=== PATIENT | male | born 1950 | race Caucasian/White ===

== ENCOUNTER 2017-04-23 11:39 | Emergency (ER) | payer OTHER ==
[2017-04-23 11:49] VITALS: BP 144/69
== END 2017-04-23 12:29 | disposition left against medical advice (07) ==
LOC: ED 11:39
DX: R22.42 Localized swelling, mass and lump, left lower limb (principal); Z53.21 Procedure and treatment not carried out due to patient leaving prior to being seen by health care provider

== ENCOUNTER 2017-04-24 06:27 | Emergency (ER) | payer OTHER ==
[2017-04-24] MEDS ORDERED: ceFAZolin 1 GM in Dextrose (*) 1 GM/50 ML BAG IVPB ONE (08:06)
[2017-04-24 08:35] LABS: ABS Basophils 0.1 10^3/ul (0-0.2); ABS Eosinophils 0.1 10^3/ul (0-0.6); ABS Monocytes 1.2 10^3/ul (0-0.8); ABS Neutrophils 10.9 10^3/ul (1.5-7.7); ABS Nucleated RBC 0 10^3/ul; Eosinophil % 0.6 % (0-6); Hematocrit 42 % (42-52); Hemoglobin 14.5 g/dl (14.0-18.0); Lymphocyte % 7.9 % (25-47); Mean Corpuscular HGB Conc 34 g/dl (31-36); Mean Corpuscular Hemoglobin 34 pg (27-31); Mean Corpuscular Volume 100 fL (80-94); Mean Platelet Volume 7 um3 (7.4-10.4); Nucleated Red Blood Cells % 0; Platelet Count 270 10^3/ul (150-450); Red Blood Count 4.21 10^6/ul (4.0-5.4); Red Cell Distribution Width 13 % (10.5-15); White Blood Count 13.3 10^3/ul (3.5-10.8)
[2017-04-24 08:44] LABS: EGFR Non-African American 73.7 (>60)
[2017-04-24] MEDS ORDERED: oxyCODONE/Acetamin 5/325 MG* TAB PO ONE (08:57)
[2017-04-24 09:32] VITALS: BP 141/73
--- NOTE | 2017-04-25 08:29 | ED ---
Amado Perez Angela, scribed for Ricky Logan MD on 04/24/17 at 0751 . Lower Extremity - HPI Summary HPI Summary: This pt is a 67 y/o male presenting to [facility] c/o left leg pain and swelling x2 weeks. Pt reports that he injects himself testosterone twice a month due to low levels of testosterone per his PCP. He notes that the last time he injected himself was 2 weeks ago on left thigh and reports it felt different. Pt states that it was more painful and it felt like the needle "hit something" inside his leg. Denies fever, chills, chest pain, SOB. - History of Current Complaint Chief Complaint: EDExtremityLower Stated Complaint: LEFT LEG INJURY Time Seen by Provider: 04/24/17 07:37 Hx Obtained From: Patient Mechanism Of Injury: Other - s/p injecting testosterone Onset of Pain: Immediate Onset/Duration: Still Present Severity Currently: Severe Pain Intensity: 10 Pain Scale Used: 0-10 Numeric Timing: Constant, Lasting Weeks Location: Is Discrete @ - left lower extremity Associated Signs And Symptoms: Positive: Swelling, Redness Aggravating Factor(s): Nothing Alleviating Factor(s): Nothing Able to Bear Weight: Yes - Allergies/Home Medications Allergies/Adverse Reactions: Allergies Allergy/AdvReac Type Severity Reaction Status Date / Time No Known Allergies Allergy Verified 04/24/17 06:33 PMH/Surg Hx/FS Hx/Imm Hx Endocrine/Hematology History: Denies: Hx Diabetes Cardiovascular History: Reports: Hx Hypertension - norvasc used by pt Denies: Hx Pacemaker/ICD Respiratory History: Denies: Hx Asthma History: Denies: Hx Dialysis, Hx Renal Disease Musculoskeletal History: Reports: Hx Arthritis, Hx Back Problems - CHONIC LOWER BACK PAIN/SCIATICA, Hx Gout Sensory History: Reports: Hx Contacts or Glasses - CONTACTS Denies: Hx Hearing Aid Opthamlomology History: Reports: Hx Contacts or Glasses - CONTACTS Psychiatric History: Reports: Hx Anxiety - MILD CLAUSTROPHOBIA Denies: Hx Panic Disorder - Surgical History Surgery Procedure, Year, and Place: bilateral hip replacements RIGHT 2006, LEFT 1997. hernia repairs, cryptorchid repair, cyst removed from rt elbow,. rt knee athroscopy 1997. BL TESTECTLAR SURGERY CHILD. RIGHT FEMORAL NECK SX/ EXCISION NECROTIC BONE BY DR PEREZ AROUND 1989 Infectious Disease History: No Infectious Disease History: Denies: Traveled Outside the [place] in Last 30 Days - Family History Known Family History: Positive: Respiratory Disease - Father: COPD Family History: Mother: gastric CA - Social History Alcohol Use: Weekly Hx Substance Use: No Substance Use Type: Reports: None Hx Tobacco Use: No Smoking Status (MU): Former Smoker Review of Systems Negative: Fever, Chills ENT: Negative Negative: Chest Pain Negative: Shortness Of Breath Gastrointestinal: Negative Musculoskeletal: Other - left thigh swelling, left thigh pain All Other Systems Reviewed And Are Negative: Yes Physical Exam - Summary Physical Exam Summary: VITAL SIGNS: Reviewed. GENERAL: Patient is a well-developed and nourished male who is lying comfortable in the stretcher. Patient is not in any acute respiratory distress. HEAD AND FACE: No signs of trauma. No ecchymosis, hematomas or skull depressions. No sinus tenderness. EYES: PERRLA, EOMI x 2, No injected conjunctiva, no nystagmus. EARS: Hearing grossly intact. Ear canals and tympanic membranes are within normal limits. MOUTH: Oropharynx within normal limits. NECK: Supple, trachea is midline, no adenopathy, no JVD, no carotid bruit, no c- spine tenderness, neck with full ROM. CHEST: Symmetric, no tenderness at palpation LUNGS: Clear to auscultation bilaterally. No wheezing or crackles. CVS: Regular rate and rhythm, S1 and S2 present, no murmurs or gallops appreciated. ABDOMEN: Soft, non-tender. No signs of distention. No rebound no guarding, and no masses palpated. Bowel sounds are normal. EXTREMITIES: FROM in all major joints, no cyanosis or clubbing. LLE: left thigh swelling with increased warmth and erythema at the site where he injected testosterone. NEURO: Alert and oriented x 3. No acute neurological deficits. Speech is normal and follows commands. SKIN: Dry and warm Triage Information Reviewed: Yes Vital Signs On Initial Exam: Initial Vitals Temp Pulse Resp BP Pulse Ox 98.1 F 95 20 142/72 96 04/24/17 06:31 04/24/17 06:31 04/24/17 06:31 04/24/17 06:31 04/24/17 06:31 Vital Signs Reviewed: Yes Procedures - Incision and Drainage Site: Left thigh Anesthesia: Lidocaine Instrument(s): Scalpel LK FREEMAN - Vital Signs Vital Signs Temp Pulse Resp BP Pulse Ox 04/24/17 06:31 98.1 F 95 20 142/72 96 - Laboratory Result Diagrams: 04/24/17 08:15 04/24/17 08:15 Lab Statement: Any lab studies that have been ordered have been reviewed, and results considered in the medical decision making process. Re-Evaluation - Re-Evaluation First Eval Re-Evaluation Time: 08:45 Comment: I and D was performed on left leg. Lower Extremity Course/Dx - Course Assessment/Plan: This pt is a 67 y/o male presenting to [facility] c/o left leg pain and swelling x2 weeks. Pt reports that he injects himself testosterone twice a month due to low levels of testosterone per his PCP. He notes that the last time he injected himself was 2 weeks ago and it felt different. Pt states that it was more painful and it felt like the needle "hit something" inside his leg. Denies fever, chills, chest pain, SOB. Test results show WBC of 13.3, CRP of 169.98. An incision and drainage was performed on abscess on left thigh. A wound culture was sent, currently pending. In the ED course the pt was given Cefazolin and Percocet for the pain. Pt was discharged to home and was placed on Bactrim. He is instructed to return to the ED for any worsening or new symptoms. Pt is hemodynamically stable, alert and oriented x3. - Diagnoses Provider Diagnoses: Cellulitis, Abscess, Status post incision and drainage Discharge - Discharge Plan Condition: Stable Disposition: HOME Prescriptions: Sulfamethox/Trimethoprim DS* [Bactrim DS 800/160 TAB*] 1 tab PO BID #20 tab Patient Education Materials: Cellulitis (ED), Abscess (ED), Incision and Drainage (ED) Referrals: Danita Blackmon MD [Primary Care Provider] - 3 Days Additional Instructions: Please follow up with your primary care provider. RETURN TO THE ED FOR ANY WORSENING SYMPTOMS. The documentation as recorded by the Amado benson Angela accurately reflects the service I personally performed and the decisions made by , Ricky Logan MD.
--- NOTE | 2017-04-25 21:47 | ED ---
Progress - Progress Note Progress Note: Patient's wound culture is negative for MRSA however positive for staph aureus. Patient's wound was incised and drained at time of visit and he was started on Bactrim which is appropriate antibiotic for this type of bacteria. No further action at this time. Re-Evaluation - Re-Evaluation First Eval Re-Evaluation Time: 08:45 Comment: I and D was performed on left leg. Course/Dx - Diagnoses Provider Diagnoses: Cellulitis, Abscess, Status post incision and drainage
== END 2017-04-24 09:15 | disposition home or self-care (01) ==
LOC: ED 06:27
DX: L02.416 Cutaneous abscess of left lower limb (principal); L03.90 Cellulitis, unspecified
CPT/HCPCS: 10060; 36415; 80053; 85025; 86140; 87070; 87077; 87186; 87205; 87640; 87641; 96360; 99282; A9270-GY; J0690

== ENCOUNTER 2017-04-30 14:42 | Inpatient (IN) | payer OTHER ==
[2017-04-30] MEDS ORDERED: Acetaminophen TAB* 325 MG PO PRN (15:18)
[2017-04-30] MEDS ORDERED: HYDROcodone/ACETAMIN 5-325 MG* 1 TAB PO PRN (15:18)
[2017-04-30] MEDS ORDERED: ceFAZolin 2 GM PREMIX (*) 2 GM/50 ML BAG IVPB SCH (16:00)
[2017-04-30 17:19] LABS: Hematocrit 44 % (42-52); Hemoglobin 15.1 g/dl (14.0-18.0); Mean Corpuscular HGB Conc 35 g/dl (31-36); Mean Corpuscular Hemoglobin 35 pg (27-31); Mean Corpuscular Volume 101 fL (80-94); Mean Platelet Volume 7 um3 (7.4-10.4); Platelet Count 420 10^3/ul (150-450); Red Blood Count 4.34 10^6/ul (4.0-5.4); Red Cell Distribution Width 13 % (10.5-15)
[2017-04-30] MEDS: ceFAZolin 2 GM/20 ML SYRINGE IVPB Q8H IVPB SCH ×4 (17:34→23:43)
[2017-04-30] MEDS: NS 0.9% 1000 ML* 1,000 ML IV SCH (17:34)
[2017-04-30 17:51] LABS: EGFR Non-African American 71.2 (>60)
[2017-04-30] MEDS: Morphine INJ* 2 MG/ML 1 ML CARPUJECT IV PRN (19:46)
[2017-04-30] MEDS: Atorvastatin* 10 MG TAB PO SCH (20:00)
[2017-04-30] MEDS: HYDROcodone/ACETAMIN 5-325 MG* 1 TAB PO PRN (22:32)
--- NOTE | 2017-04-30 22:49 | CONS ---
CC: [facility]; Dr. Perez, [facility] * CONSULTATION REPORT: DATE OF CONSULT: 04/30/17 REFERRING PROVIDER: Lizzie Manning DO, Hospitalist. REASON FOR CONSULTATION: Left thigh abscess. HISTORY OF PRESENT ILLNESS: Mr. Luther Flannery is a 67-year-old gentleman who injects testosterone into his thighs every several weeks. He did this last about 2 weeks ago and subsequently developed some redness, swelling, and inflammation in the left lateral anterior thigh area. He has been seen in the emergency room several times and also by Dr. Perez and had a rather large abscess drained on Sunday. This wound has been packed. He is still having copious amounts of turbid bloody fluid and, although he says he feels somewhat better and he has had no fevers, he sought care today and was admitted to the hospitalist service to start IV antibiotics, wound care, and obtain surgical consultation. He has had no fever, shakes, or chills. He is still having quite a large amount of drainage from the thigh. PAST MEDICAL HISTORY: 1. Rheumatoid arthritis. 2. Hypertension. 3. Obesity. 4. Gout. PAST SURGICAL HISTORY: Bilateral hip replacements and knee replacement. ALLERGIES: He has no known drug allergies. SOCIAL HISTORY: He is retired. He works as a reading teacher and he is and lives in [facility]. PHYSICAL EXAM: Temperature 98.4, pulse 61, blood pressure 144/59. In the left superior lateral thigh, he has a transverse incision of about 1 inch. There is some induration, but no significant redness surrounding the area. There is a one-quarter inch ribbon packing extruding from the area with a fair amount of bloody turbid drainage on the overlying gauze. The area is indurated and tender , but there is no redness or fluctuance noted. I note no swelling in the left lower extremity. DIAGNOSTIC STUDIES: He underwent an ultrasound last week prior to Dr. Perez ' incision and drainage in the office, which showed fluid. IMPRESSION: Left thigh abscess. This has been what appears to be adequately drained by Dr. Perez last Sunday, but he is having persistent discomfort as well as drainage. He was admitted to the hospitalist service for IV antibiotics. On review of his exam, he is still having drainage. I suspect that this just requires some further opening and debridement as well as irrigation to allow packing and wound care to be initiated. We will also rule out any deeper source of infection. I discussed this with the patient and his . We will keep him n.p.o. after midnight and plan surgery tomorrow some time. The risks are but not limited to bleeding, infection, discomfort, recurrence, and further intervention depending on clinical findings and course of recovery were all explained. [id number]/[facility] #: [id number] ELVIA
--- NOTE | 2017-04-30 23:31 | HP ---
CC: Dr. Blackmon * HISTORY AND PHYSICAL: DATE OF ADMISSION: 04/30/17 PRIMARY CARE PROVIDER: Dr. Blackmon. ELECTRIC BATH ATTENDANT: Elisa Avila NP CHIEF COMPLAINT: Thigh infection. HISTORY OF PRESENT ILLNESS: Mr. Flannery is a 67-year-old male, who every 2 weeks administers testosterone injections into his thighs. He states approximately 2 weeks ago, he gave himself an injection into his left thigh. He began to have discomfort in the thigh, which he states is normal for him; however, the discomfort lasted for longer than usual. On 04/20/17, he saw Dr. Perez in the clinic, where an aspiration was performed. He was started on Keflex. Reportedly, a small amount of pus was identified. The patient continues to feel a tight and swollen feeling in his leg; therefore, he presented to the emergency room 04/24/17. At that time, he underwent I and D with Dr. Logan. Again, some pus came out; however, he denies this being a significant amount. The patient again saw Dr. Perez at this time on ; at which time, he reportedly took forceps to the wound to try to enlarge the abscess cavity and release the purulent material. At that point, the patient reports a significant amount of drainage from the wound. The wound has been packed with what he describes as 2 feet of packing tape. The patient continues to have significant tenderness to the left thigh. The patient denies any fevers or chills; however, he does state that he feels very run down. On the day of admission, the patient was seeing Dr. Grey in the office. Dr. Grey contacted me for direct admission as he was concerned that the patient would need a formal surgical debridement. PAST MEDICAL HISTORY: 1. RA. 2. Hypertension. 3. Gout. 4. Chronic back pain. PAST SURGICAL HISTORY: 1. Right knee resurfacing. 2. Bilateral total hip replacements. 3. Testicular surgeries for undescended testicles. MEDICATIONS: 1. Leucovorin 5 mg p.o. weekly following methotrexate. 2. Crestor 5 mg p.o. q.h.s. 3. Flonase 2 squirts to both nostrils daily. 4. Tylenol 650 mg p.o. q.6 hours p.r.n. pain. 5. Vitamin B12 1000 mcg IM monthly. 6. Bupropion XL 150 mg p.o. daily. 7. Adderall XR 10 mg p.o. daily. 8. Allopurinol 300 mg p.o. daily. 9. Multivitamin 1 tab p.o. daily. 10. Losartan 100 mg p.o. daily. 11. [place] 10/325 one tab p.o. q.4 to 6 hours p.r.n. pain. 12. Methotrexate 10 mg p.o. weekly. 13. Testosterone 150 mg IM monthly. 14. Bactrim DS 1 tab p.o. b.i.d. 15. Amlodipine 10 mg p.o. daily. ALLERGIES: No known drug allergies. FAMILY HISTORY: Mom at the age of 93, she had dementia. Dad at age of 67, he had COPD and he was an alcoholic. SOCIAL HISTORY: The patient is a nonsmoker. He drinks 1 to 2 beers per day. 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 He is . He has 2 children. He indicates that his , Carleen, in his healthcare proxy. REVIEW OF SYSTEMS: A complete 11-system review of systems was obtained. Pertinent positives and negatives are as per HPI and in addition, the patient does admit to anorexia. PHYSICAL EXAMINATION GENERAL: The patient is a well-developed, middle-aged male, sitting up in the bed, in no acute distress. VITAL SIGNS: Blood pressure 144/59, pulse 61, respirations 18, temp 98.4, O2 sat 97% on room air. HEENT: Pupils are equal and round. Extraocular muscles are intact. Oropharynx is clear. Oral mucosa is moist. There is no submandibular, cervical , or supraclavicular adenopathy. Thyroid is not enlarged. No thyroid nodules noted. PULMONARY: Lungs are clear to auscultation bilaterally. CARDIAC: Normal S1, S2. Regular rate and rhythm. I do not appreciate any murmurs. ABDOMEN: Bowel sounds present. Abdomen is soft, nontender, nondistended. MUSCULOSKELETAL: There is no cyanosis or clubbing of the digits. There is full active range of motion of all 4 extremities. SKIN: Warm and dry. There are no rashes. The patient does have a large area of induration overlying the left anterior thigh. There is bloody purulent drainage noted on dressing overlying the left thigh wound. The packing also saturated with bloody purulent drainage. NEUROLOGIC: Cranial nerves II through XII are grossly intact. Sensation is intact to light touch throughout. Strength is 5/5 and symmetric in both upper and lower extremities bilaterally. PSYCH: The patient is alert. He is oriented x3. Affect appears appropriate. DIAGNOSTIC STUDIES/LAB DATA: WBC 8.0, hemoglobin 15.1, hematocrit 44, platelets 420. Sodium 132, potassium 4.3, chloride 100, CO2 25, BUN 14, creatinine 1.04, glucose 80, calcium 9.8. CRP 20.13. Blood cultures pending. Wound culture from 04/24/17 positive for Staph aureus, MRSA negative. Left thigh soft tissue ultrasound: There is severe dermal and subcutaneous edema. Intervening between the subcutaneous tissue plane in the muscular fascia , there is a large volume of infiltrative fluid extending over an area at least 10 cm in maximum dimension at all margins of the packed wound. No loculated marginated discrete abscess collection is visualized; however, early abscess formation is not excluded. ASSESSMENT AND PLAN: Mr. Flannery is a 67-year-old male with a history of rheumatoid arthritis, on methotrexate; hypertension; and gout, who presents to [facility] after being referred by Dr. Grey for surgical debridement of a large left thigh abscess following testosterone injection into the thighs approximately 2 weeks ago. 1. Left thigh abscess. The patient has already had incision and drainage of the abscess cavity; however, we will ask for surgical consultation with Dr. Ramos to determine whether or not the patient needs a formal surgical debridement. Per Dr. Grey, the patient has been started on Ancef 2 g IV q.8 hours. Blood cultures have been obtained and these are pending. Cultures from debridement on 04/24/17 is growing MSSA. 2. Hypertension. The patient's blood pressure is mildly elevated at this time ; however, he is having pain. We will continue his amlodipine 10 mg daily. We will monitor his blood pressure and make adjustments as necessary. 3. Gout. We will continue allopurinol 300 mg p.o. daily. 4. Rheumatoid arthritis. The patient's methotrexate will be held. He does not believe he even took at the week prior to this. The methotrexate can be resumed upon resolution of his infection. 5. DVT prophylaxis. According to the Adult Thrombosis Prophylaxis Risk Factor Assessment Guide, the patient has a total risk factor score of 2 making him moderate risk at this point. Chemical DVT prophylaxis will be held as he is going to be likely going to the OR tomorrow. SCDs for now will be utilized as DVT prophylaxis. 6. Code status is full. TIME SPENT: 65 minutes were spent admitting this patient. [id number]/[facility] #: [id number] ELVIA
[2017-05-01] MEDS: NS 0.9% 1000 ML* 1,000 ML IV SCH ×2 (04:59→23:13)
[2017-05-01] MEDS: HYDROcodone/ACETAMIN 5-325 MG* 1 TAB PO PRN ×4 (05:57→23:13)
[2017-05-01 07:05] LABS: INR 1.14 (0.77-1.02)
[2017-05-01] MEDS: ceFAZolin 2 GM/20 ML SYRINGE IVPB Q8H IVPB SCH ×4 (08:21→16:51)
[2017-05-01] MEDS: BuPROPion XL* 150 MG TAB.XL PO SCH (08:23)
[2017-05-01] MEDS: Allopurinol TAB* 300 MG PO SCH (08:23)
[2017-05-01] MEDS: AMPHETAMINE PO SCH (08:24)
[2017-05-01] MEDS: Losartan TAB* 25 MG PO SCH (08:24)
[2017-05-01] MEDS: Multivitamins/Minerals TAB PO SCH (08:24)
[2017-05-01] MEDS: DEXTROAMPH PO SCH (08:24)
[2017-05-01] MEDS: amLODIPine TAB* 5 MG PO SCH (08:24)
--- NOTE | 2017-05-01 08:57 | PN ---
Progress Note - Progress Note Date of Service: 05/01/17 SOAP: Subjective: CC: leg infection HPI: 67 year old man with left thigh abscess after IM injection; pain improved with pain medicine, going to OR today. No fever, rash, or diarrhea. Objective: Vital Signs Temp 36.3 C 05/01/17 07:20 Pulse 50 05/01/17 07:20 Resp 16 05/01/17 08:44 BP 145/69 05/01/17 07:20 Pulse Ox 95 05/01/17 07:20 Intake & Output 04/30/17 05/01/17 05/01/17 18:59 06:59 18:59 Intake Total 415 40 0 Output Total 1500 Balance 415 -1460 0 Weight 255 lb 1.6 oz Intake: IV Fluids 40 Oral 415 0 0 Output: Urine 1500 Other: Estimated Void Medium # Bowel Movements 0 # Voids 2 Gen:awake, no distress HEENT: no thrush Heart:RRR no murmur Lungs:CTA BL Abd:+BS NTND soft Skin: no rash MSK: no spine tenderness; left thigh indurated, warm, incision serous drainage Laboratory Results - last 24 hr 04/30/17 04/30/17 05/01/17 16:53 16:53 06:45 WBC 8.0 RBC 4.34 Hgb 15.1 Hct 44 MCV 101 H MCH 35 H MCHC 35 RDW 13 Plt Count 420 MPV 7 L INR (Anticoag Therapy) 1.14 H Sodium 132 L Potassium 4.3 Chloride 100 L Carbon Dioxide 25 Anion Gap 7 BUN 14 Creatinine 1.04 Est GFR ( Amer) 91.6 Est GFR (Non-Af Amer) 71.2 BUN/Creatinine Ratio 13.5 Glucose 80 Calcium 9.8 C-Reactive Protein 20.13 H Assessment: 1. MSSA leg abscess and infective myositis with undrained abscess 2. RA on methotrexate Plan: 1. continue ancef 2 gm IV Q8hrs; OR to for I&D
--- NOTE | 2017-05-01 09:35 | PN ---
Subjective Date of Service: 05/01/17 Interval History: Pt is feeling well. He denies any significant pain at this time. He states the norco is keeping his pain manageable. He is hungry but understands he is NPO for surgery today. Objective Active Medications: Acetaminophen (Tylenol Tab*) 650 mg PO Q4H PRN PRN Reason: PAIN Hydrocodone Bitart/Acetaminophen ([place] 5-325 Tab*) 2 tab PO Q4H PRN PRN Reason: PAIN Last Admin: 05/01/17 05:57 Dose: 2 tab Allopurinol (Zyloprim Tab*) 300 mg PO DAILY [facility] Last Admin: 05/01/17 08:23 Dose: 300 mg Amlodipine Besylate (Norvasc Tab*) 10 mg PO DAILY [facility] Last Admin: 05/01/17 08:24 Dose: 10 mg Amphetamine/Dextroamphetamine (Adderal Xr (Nf)) 10 mg PO QAM [facility] Last Admin: 05/01/17 08:24 Dose: Not Given Atorvastatin Calcium (Lipitor*) 10 mg PO BEDTIME [facility] Last Admin: 04/30/17 20:00 Dose: 10 mg Bupropion HCl (Wellbutrin Xl *) 150 mg PO QAM [facility] PRN Reason: Protocol Last Admin: 05/01/17 08:23 Dose: 150 mg Sodium Chloride (Ns 0.9% 1000 Ml*) 1,000 mls @ 100 mls/hr IV PER RATE [facility] Last Admin: 05/01/17 04:59 Dose: 100 mls/hr Cefazolin Sodium 2 gm/ Sterile (Water) 20 mls @ 60 mls/hr IVPB Q8H [facility] Last Admin: 05/01/17 08:21 Dose: 60 mls/hr Losartan Potassium (Cozaar Tab*) 100 mg PO DAILY [facility] Last Admin: 05/01/17 08:24 Dose: 100 mg Morphine Sulfate (Morphine Inj (Syringe)*) 2 mg IV Q4H PRN PRN Reason: PAIN - MILD Last Admin: 04/30/17 19:46 Dose: 2 mg Multivitamins/Minerals (Theragran/Minerals Tab*) 1 tab PO DAILY [facility] Last Admin: 05/01/17 08:24 Dose: Not Given Vital Signs - 8 hr 05/01/17 05/01/17 05/01/17 01:33 04:22 05:57 Temperature 97.5 F Pulse Rate 72 Respiratory 16 16 18 Rate Blood Pressure 137/57 (mmHg) O2 Sat by Pulse 95 Oximetry 05/01/17 05/01/17 07:20 08:44 Temperature 97.3 F Pulse Rate 50 Respiratory 16 16 Rate Blood Pressure 145/69 (mmHg) O2 Sat by Pulse 95 Oximetry Oxygen Devices in Use Now: None Appearance: Middle aged male sleeping in bed, easily awakens to voice, NAD Eyes: No Scleral Icterus Ears/Nose/Mouth/Throat: Mucous Membranes Moist Respiratory: Symmetrical Chest Expansion and Respiratory Effort, Clear to Auscultation Cardiovascular: NL Sounds; No Murmurs; No JVD, RRR, No Edema Abdominal: NL Sounds; No Tenderness; No Distention Extremities: No Clubbing, Cyanosis Skin: No Nodules or Sclerosis, - - wound not inspected today Neurological: Alert and Oriented x 3 Result Diagrams: 04/30/17 16:53 04/30/17 16:53 Assess/Plan/Problems-Billing Mr Flannery is a 67 yo M who has a h/o RA on MTX who presented to [facility] from Dr. Grey's office for a L thigh abscess. - Patient Problems (1) Abscess of left thigh Current Visit: Yes Status: Acute Code(s): L02.416 - CUTANEOUS ABSCESS OF LEFT LOWER LIMB SNOMED Code(s): 9697456 Comment: Developed after he gave himself an IM testosterone injection. He had I&D attempts as an outpatient. Plan will be for him to go to the OR today for further and more aggressive debridement. Continue ancef for the thigh abscess and infective myositis. ID following. (2) Rheumatoid arthritis Current Visit: Yes Status: Acute Code(s): M06.9 - RHEUMATOID ARTHRITIS, UNSPECIFIED SNOMED Code(s): 31935286 Comment: MTX and leucovorin are on hold. Continue prn norco for pain. (3) HTN (hypertension) Current Visit: Yes Status: Acute Code(s): I10 - ESSENTIAL (PRIMARY) HYPERTENSION SNOMED Code(s): 29559062 Comment: BP under ok control. Continue amlodipine and losartan. (4) DVT prophylaxis Current Visit: Yes Status: Acute Code(s): QYR7282 - SNOMED Code(s): 219012821 Comment: SCDs-start heparin post-op (5) Full code status Current Visit: Yes Status: Acute Code(s): Z78.9 - OTHER SPECIFIED HEALTH STATUS SNOMED Code(s): 923661808
[2017-05-01] MEDS ORDERED: Lidocain 1% EPI 1:100,000 * 30 ML MDV ONE (13:21)
[2017-05-01] MEDS ORDERED: Bupivacaine 0.5% SDV PF* 10-30ML VIAL ONE (13:21)
[2017-05-01] MEDS ORDERED: fentaNYL* 50 MCG/ML 2 ML VIAL (100 MCG VIAL) ONE (13:44)
[2017-05-01] MEDS ORDERED: Midazolam* 1 MG/ML 5 ML VIAL (5 MG) ONE (13:44)
[2017-05-01] MEDS ORDERED: Propofol* 10 MG/ML 20 ML BTL IV PUSH ONE (13:51)
[2017-05-01] MEDS ORDERED: Ondansetron INJ* 2 MG/ML VIAL IV PRN (14:13)
[2017-05-01] MEDS ORDERED: Naloxone* 0.4 MG/ML 1 ML VIAL IV PRN (14:13)
--- NOTE | 2017-05-01 14:28 | BRIEFOPN ---
Brief Operative Note - Surgery Procedures: Procedures OPERATIVE REPORT PRE-OP: Left thigh abscess POST-OP: Same, left thigh hematoma PROCEDURE: Incision and drainage of left thigh abscess and hematoma SURGEON: MD Richard ANESTHESIA:Local with MAC Dr. Renner ASST: none IVF: min EBL: min SPECIMEN: Fluid for gram stain and culture DRAIN: none WOUND CLASS: 4 COMPLICATIONS: none TO PACU
[2017-05-01] MEDS ORDERED: HYDROmorphone INJ* 2 MG/ML CARPUJECT SYRINGE ONE (14:38)
[2017-05-01] MEDS: HYDROmorphone INJ* 1 MG/ML CARPUJECT SYRINGE IV PRN ×3 (14:39→14:58)
[2017-05-01] MEDS: Morphine INJ* 2 MG/ML 1 ML CARPUJECT IV PRN ×2 (15:32→20:44)
[2017-05-01] MEDS: Atorvastatin* 10 MG TAB PO SCH ×2 (21:00→21:02)
[2017-05-02] MEDS: ceFAZolin 2 GM/20 ML SYRINGE IVPB Q8H IVPB SCH ×6 (00:29→16:33)
[2017-05-02] MEDS: Morphine INJ* 2 MG/ML 1 ML CARPUJECT IV PRN ×3 (00:34→16:33)
[2017-05-02] MEDS: HYDROcodone/ACETAMIN 5-325 MG* 1 TAB PO PRN ×3 (06:07→20:30)
[2017-05-02] MEDS: Multivitamins/Minerals TAB PO SCH (08:26)
[2017-05-02] MEDS: Losartan TAB* 25 MG PO SCH (08:26)
[2017-05-02] MEDS: BuPROPion XL* 150 MG TAB.XL PO SCH (08:27)
[2017-05-02] MEDS: DEXTROAMPH PO SCH (08:27)
[2017-05-02] MEDS: Allopurinol TAB* 300 MG PO SCH (08:27)
[2017-05-02] MEDS: amLODIPine TAB* 5 MG PO SCH (08:27)
[2017-05-02] MEDS: AMPHETAMINE PO SCH (08:27)
--- NOTE | 2017-05-02 09:59 | PN ---
Progress Note - Progress Note Date of Service: 05/02/17 SOAP: Subjective: CC: leg infection HPI: 67 year old man with left thigh abscess after IM injection; pain improved with pain medicine, had I&D 05/01, tolerated it well. Some pain left thigh, pain medicine helps. No fever, rash, or diarrhea. Objective: Vital Signs Temp 36.4 C 05/02/17 07:33 Pulse 81 05/02/17 07:33 Resp 18 05/02/17 09:17 BP 155/80 05/02/17 07:33 Pulse Ox 95 05/02/17 07:33 Intake & Output 05/01/17 05/02/17 05/02/17 18:59 06:59 18:59 Intake Total 1000 1168 Output Total 1500 1450 Balance -500 -282 Intake: IV Fluids 600 1148 LR 600 NS (0.45%) 1148 IVPB 20 ABX - CEFAZOLIN 20 Oral 400 0 Output: Urine 900 1450 Zelaya 600 Other: # Bowel Movements 0 # Voids 1 Gen:awake, no distress HEENT: no thrush Heart:RRR no murmur Lungs:CTA BL Abd:+BS NTND soft Skin: no rash MSK: no spine tenderness; left thigh incision with packing; surrounding slight edema Assessment: 1. MSSA leg abscess and infective myositis with infected hematoma s/p I&D, surrounding leg much improved 2. RA on methotrexate Plan: 1. continue ancef 2 gm IV Q8hrs, packing change per surgery, hold MTX Seen and discussed with Dr Ramos
--- NOTE | 2017-05-02 10:15 | PN ---
Progress Note - Progress Note Date of Service: 05/02/17 SOAP: Subjective: Doing well with minimal pain No problems with dressing overnight Objective: Temp Pulse Resp BP Pulse Ox 97.6 F 81 18 155/80 95 05/02/17 07:33 05/02/17 07:33 05/02/17 09:17 05/02/17 07:33 05/02/17 07:33 PEX: Left leg abscess site is clean and healthy with pink, viable tissue and exposed muscle. No surrounding redness and no odor or purulence. Patient was pre-medicated with morphine and packing was changed with wet to dry NS 2 inch cling packing and covered with dry gauze. Culture results noted and reviewed with Dr. Grey Assessment: POD# 1 s/p I and D of left thigh abscess. Plan: Wound care with daily packing IV antibiotics per ID Case management consult-should be ready for d/c in next 24-48 hours with VN outpatient packing changes and office follow up.
[2017-05-02] MEDS ORDERED: Morphine INJ* 2 MG/ML 1 ML CARPUJECT IV ONE (11:40)
--- NOTE | 2017-05-02 12:49 | PN ---
Subjective Date of Service: 05/02/17 Interval History: POD#1 afebrile. had a lot of bleeding this late AM. Dr. Ramos placed stitch and exchanged packing. pain controlled with IV morphine 2mg. Objective Active Medications: Acetaminophen (Tylenol Tab*) 650 mg PO Q4H PRN PRN Reason: PAIN Hydrocodone Bitart/Acetaminophen ([place] 5-325 Tab*) 2 tab PO Q4H PRN PRN Reason: PAIN Last Admin: 05/02/17 12:05 Dose: 2 tab Allopurinol (Zyloprim Tab*) 300 mg PO DAILY [facility] Last Admin: 05/02/17 08:27 Dose: 300 mg Amlodipine Besylate (Norvasc Tab*) 10 mg PO DAILY [facility] Last Admin: 05/02/17 08:27 Dose: 10 mg Amphetamine/Dextroamphetamine (Adderal Xr (Nf)) 10 mg PO QAM [facility] Last Admin: 05/02/17 08:27 Dose: 10 mg Atorvastatin Calcium (Lipitor*) 10 mg PO BEDTIME [facility] Last Admin: 05/01/17 21:02 Dose: Not Given Bupropion HCl (Wellbutrin Xl *) 150 mg PO QAM [facility] PRN Reason: Protocol Last Admin: 05/02/17 08:27 Dose: 150 mg Sodium Chloride (Ns 0.9% 1000 Ml*) 1,000 mls @ 100 mls/hr IV PER RATE [facility] Last Admin: 05/01/17 23:13 Dose: 100 mls/hr Cefazolin Sodium 2 gm/ Sterile (Water) 20 mls @ 60 mls/hr IVPB Q8H [facility] Last Admin: 05/02/17 08:26 Dose: 60 mls/hr Losartan Potassium (Cozaar Tab*) 100 mg PO DAILY [facility] Last Admin: 05/02/17 08:26 Dose: 100 mg Morphine Sulfate (Morphine Inj (Syringe)*) 2 mg IV Q4H PRN PRN Reason: PAIN - MILD Last Admin: 05/02/17 09:17 Dose: 2 mg Multivitamins/Minerals (Theragran/Minerals Tab*) 1 tab PO DAILY [facility] Last Admin: 05/02/17 08:26 Dose: 1 tab Naloxone HCl (Narcan*) 0.08 mg IV Q2M PRN PRN Reason: severe induced resp depression Stop: 05/02/17 14:12 Vital Signs - 8 hr 05/02/17 05/02/17 05/02/17 06:07 07:33 08:28 Temperature 97.6 F Pulse Rate 81 Respiratory 18 16 18 Rate Blood Pressure 155/80 (mmHg) O2 Sat by Pulse 95 Oximetry 05/02/17 05/02/17 05/02/17 09:17 11:47 12:05 Temperature Pulse Rate Respiratory 18 19 17 Rate Blood Pressure (mmHg) O2 Sat by Pulse Oximetry Oxygen Devices in Use Now: None Appearance: NAD Eyes: No Scleral Icterus, PERRLA Ears/Nose/Mouth/Throat: NL Teeth, Lips, Gums, Mucous Membranes Moist Neck: NL Appearance and Movements; NL JVP Respiratory: Symmetrical Chest Expansion and Respiratory Effort, Clear to Auscultation Cardiovascular: NL Sounds; No Murmurs; No JVD, RRR Abdominal: NL Sounds; No Tenderness; No Distention, No Hepatosplenomegaly Extremities: No Edema, No Clubbing, Cyanosis Skin: No Rash or Ulcers, - - left thigh with cross-shaped incisions. packed with some serosanguinous drainage. Neurological: Alert and Oriented x 3, NL Sensation, NL Muscle Strength and Tone Nutrition: Taking PO's Result Diagrams: 04/30/17 16:53 04/30/17 16:53 Microbiology and Other Data: Microbiology 05/01/17 14:15 Wound Anaerobic Culture - Preliminary 05/01/17 14:15 Wound Skin and Soft Tissue MRSA/MSSA (PCR - Final Mrsa Negative S.aureus Positive 05/01/17 14:15 Wound Gram Stain - Final 05/01/17 14:15 Wound Wound Culture - Preliminary Staphylococcus Aureus 04/30/17 16:53 Blood Venous Aerobic Blood Culture - Preliminary No Growth Day 1 04/30/17 16:53 Blood Venous Anaerobic Blood Culture - Preliminary No Growth Day 1 04/30/17 16:53 Blood Venous Aerobic Blood Culture - Preliminary No Growth Day 1 04/30/17 16:53 Blood Venous Anaerobic Blood Culture - Preliminary No Growth Day 1 Assess/Plan/Problems-Billing Mr Flannery is a 67 yo M who has a h/o RA on MTX who presented to [facility] from Dr. Grey's office for a L thigh abscess. MSSA on 04/24 I&D. on cefazolin. - Patient Problems (1) Abscess of left thigh Current Visit: Yes Status: Acute Code(s): L02.416 - CUTANEOUS ABSCESS OF LEFT LOWER LIMB SNOMED Code(s): 5032388 Comment: Developed after he gave himself an IM testosterone injection. s/p I& D attempts as an outpatient. MSSA on 04/24. s/p OR 05/01 w/ Dr. Ramos. Continue ancef for the thigh abscess and infective myositis. appreciate ID recs. daily packing. (2) DVT prophylaxis Current Visit: Yes Status: Acute Code(s): QOM5158 - SNOMED Code(s): 228253451 Comment: SCDs- hold heparin given bleeding today (3) HTN (hypertension) Current Visit: Yes Status: Acute Code(s): I10 - ESSENTIAL (PRIMARY) HYPERTENSION SNOMED Code(s): 24974826 Comment: BP under ok control. Continue amlodipine 10mg and losartan 100mg daily. (4) Rheumatoid arthritis Current Visit: Yes Status: Acute Code(s): M06.9 - RHEUMATOID ARTHRITIS, UNSPECIFIED SNOMED Code(s): 50299958 Comment: MTX and leucovorin are on hold. Continue prn norco for pain. Status and Disposition: medicine inpatient.
[2017-05-02] MEDS ORDERED: Heparin VIAL(*) 5000 UNITS/ML VIAL (FIVE THOUSAND) SUBCUT SCH (14:00)
--- NOTE | 2017-05-02 14:27 | OP ---
CC: [facility]; Dr. Perez, [facility] OPERATIVE REPORT: DATE OF OPERATION: 05/01/17 DATE OF : 50 SURGEON: Guicho Ramos MD ANNEALING OPERATOR: None. ANESTHESIOLOGIST: Dr. Renner. ANESTHESIA: Local and monitored anesthesia care. PRE-OP DIAGNOSIS: Left anterolateral thigh abscess. POST-OP DIAGNOSES: 1. Left anterolateral thigh abscess. 2. Left anterolateral thigh hematoma. OPERATIVE PROCEDURE: Incision and drainage of left thigh abscess and hematoma. ESTIMATED BLOOD LOSS: Minimal. SPECIMENS: Fluid for Gram Stain and culture. DRAINS: None. WOUND CLASSIFICATION: 4. FINDINGS: The patient had a previously drained incision and incompletely drained left thigh abscess. There were areas of turbid murky fluid remaining as well as a deeper thigh hematoma beneath the lat eral fascia, which was drained. Cultures were sent. DESCRIPTION OF PROCEDURE: Informed consent was obtained, the left thigh was marked with indelible in k and the patient had been receiving IV antibiotics. He was taken to the operating room, placed in a supine position. Sedation was administered and the left lateral anterior thigh was prepped and drap ed in the usual sterile fashion. Time-out verification was completed. 1% lidocaine with epinephrine mixed with 0.5% Marcaine was then infiltrated extensively in the area o f the previous incision. This was approximately a 1-1/2 to 2 cm transverse incision and this was ext ended in a cruciate cross type incision both vertically and transversely to make approximately 3 cm x 4 cm. There was a large subcutaneous pocket of turbid material and nonviable tissue which was debri ded and drained and cultures were sent. There was no true purulent abscess cavity. There was no crea my pus noted. Slightly deeper to this was a rent in the fascia and deep to this was the underlying m uscle, there was a large hematoma of currant jelly type material consistent with an old hematoma whic h was then irrigated and digitally removed. The muscle appeared to be viable. The wound was irrigat ed thoroughly with saline until clear. Hemostasis was assured. I packed the wound both the deep and the superficial component with a single moist 2 inch Priya and the wound was covered with dry 4 x 4 gauze, ABD pads and then tape. The patient tolerated the procedure well, was sent to recovery room in stable condition. [id number]/[facility] #: [id number]
[2017-05-02] MEDS ORDERED: Senna TAB PO PRN (16:37)
[2017-05-02] MEDS: Docusate CAP* 100 MG PO PRN (20:30)
[2017-05-02] MEDS: Atorvastatin* 10 MG TAB PO SCH (20:32)
[2017-05-03] MEDS: ceFAZolin 2 GM/20 ML SYRINGE IVPB Q8H IVPB SCH ×6 (00:14→16:24)
[2017-05-03] MEDS: Morphine INJ* 2 MG/ML 1 ML CARPUJECT IV PRN ×2 (00:19→10:58)
[2017-05-03] MEDS: HYDROcodone/ACETAMIN 5-325 MG* 1 TAB PO PRN ×4 (01:46→20:47)
[2017-05-03 06:09] LABS: ABS Basophils 0.1 10^3/ul (0-0.2); ABS Eosinophils 0.1 10^3/ul (0-0.6); ABS Monocytes 0.6 10^3/ul (0-0.8); ABS Nucleated RBC 0 10^3/ul; Eosinophil % 1.3 % (0-6); Hematocrit 43 % (42-52); Hemoglobin 14.6 g/dl (14.0-18.0); Lymphocyte % 22.8 % (25-47); Mean Corpuscular HGB Conc 34 g/dl (31-36); Mean Corpuscular Hemoglobin 34 pg (27-31); Mean Corpuscular Volume 100 fL (80-94); Mean Platelet Volume 6.7 um3 (7.4-10.4); Nucleated Red Blood Cells % 0.1; Platelet Count 367 10^3/ul (150-450); Red Blood Count 4.24 10^6/ul (4.0-5.4); Red Cell Distribution Width 14 % (10.5-15); White Blood Count 8.9 10^3/ul (3.5-10.8)
[2017-05-03 06:24] LABS: EGFR Non-African American 83.1 (>60)
--- NOTE | 2017-05-03 07:54 | PN ---
Progress Note - Progress Note Date of Service: 05/03/17 SOAP: Subjective: This note is from care provided on 05/02/17 I was called back to room by nurse at 1130 05/02 for bleeding from the wound after packing change earlier in the day. On exam, there was a bleeding subcutaneous vessel that was ligated with a single 4-0 vicryl suture. Bleeding ceased and the wound was repacked. Later check on patient at 1600 showed no bleeding and he was to get up and ambulate without problem.
[2017-05-03] MEDS: AMPHETAMINE PO SCH (08:03)
[2017-05-03] MEDS: amLODIPine TAB* 5 MG PO SCH (08:03)
[2017-05-03] MEDS: DEXTROAMPH PO SCH (08:03)
[2017-05-03] MEDS: Docusate CAP* 100 MG PO PRN ×2 (08:04→20:04)
[2017-05-03] MEDS: Allopurinol TAB* 300 MG PO SCH (08:04)
[2017-05-03] MEDS: Losartan TAB* 25 MG PO SCH (08:04)
[2017-05-03] MEDS: Multivitamins/Minerals TAB PO SCH (08:04)
[2017-05-03] MEDS: BuPROPion XL* 150 MG TAB.XL PO SCH (08:07)
--- NOTE | 2017-05-03 09:35 | PN ---
Progress Note - Progress Note Date of Service: 05/03/17 SOAP: Subjective: CC: leg infection HPI: 67 year old man with left thigh abscess after IM injection; had I&D 05/01, tolerated it well. Some pain left thigh, pain medicine helps. No fever, rash, or diarrhea. Appetite good. Objective: Vital Signs Temp 36.4 C 05/03/17 07:22 Pulse 48 05/03/17 07:22 Resp 18 05/03/17 08:04 BP 143/67 05/03/17 07:22 Pulse Ox 94 05/03/17 07:22 Intake & Output 05/02/17 05/03/17 05/03/17 18:59 06:59 18:59 Intake Total 1650 553 Output Total 400 Balance 1250 553 Intake: IV Fluids 513 ABX - CEFAZOLIN 20 NS (0.9%) 493 IVPB 40 ABX - CEFAZOLIN 40 Oral 1650 0 Output: Urine 400 Other: Estimated Void Medium # Bowel Movements 0 # Voids 1 Gen:awake, no distress HEENT: no thrush Heart:RRR no murmur Lungs:CTA BL Abd:+BS NTND soft Skin: no rash MSK: left thigh incision packed; surrounding slight edema Assessment: 1. MSSA leg abscess and infective myositis with infected hematoma s/p I&D 2. RA on methotrexate Plan: 1. continue ancef 2 gm IV Q8hrs, packing change per surgery, hold MTX. Bactrim DS tab PO BID x14 days at discharge (he tolerates it better than other oral abx)
--- NOTE | 2017-05-03 11:19 | PN ---
Progress Note - Progress Note Date of Service: 05/03/17 SOAP: Subjective:Pod#2 s/p I&D left thigh abscess less pain [] Objective:afebrile;VSS;premedicated; Laboratory Last Values WBC 8.9 10^3/ul (3.5-10.8) 05/03/17 05:51 RBC 4.24 10^6/ul (4.0-5.4) 05/03/17 05:51 Hgb 14.6 g/dl (14.0-18.0) 05/03/17 05:51 Hct 43 % (42-52) 05/03/17 05:51 MCV 100 fL (80-94) H 05/03/17 05:51 MCH 34 pg (27-31) H 05/03/17 05:51 MCHC 34 g/dl (31-36) 05/03/17 05:51 RDW 14 % (10.5-15) 05/03/17 05:51 Plt Count 367 10^3/ul (150-450) 05/03/17 05:51 MPV 6.7 um3 (7.4-10.4) L 05/03/17 05:51 Neut % (Auto) 67.9 % (38-83) 05/03/17 05:51 Lymph % (Auto) 22.8 % (25-47) L 05/03/17 05:51 [place] % (Auto) 6.8 % (0-7) 05/03/17 05:51 Eos % (Auto) 1.3 % (0-6) 05/03/17 05:51 Baso % (Auto) 1.2 % (0-2) 05/03/17 05:51 Absolute Neuts (auto) 6.0 10^3/ul (1.5-7.7) 05/03/17 05:51 Absolute Lymphs (auto) 2.0 10^3/ul (1.0-4.8) 05/03/17 05:51 Absolute Monos (auto) 0.6 10^3/ul (0-0.8) 05/03/17 05:51 Absolute Eos (auto) 0.1 10^3/ul (0-0.6) 05/03/17 05:51 Absolute Basos (auto) 0.1 10^3/ul (0-0.2) 05/03/17 05:51 Absolute Nucleated RBC 0 10^3/ul 05/03/17 05:51 Nucleated RBC % 0.1 05/03/17 05:51 INR (Anticoag Therapy) 1.14 (0.77-1.02) H 05/01/17 06:45 Sodium 134 mmol/L (133-145) 05/03/17 05:51 Potassium 3.9 mmol/L (3.5-5.0) 05/03/17 05:51 Chloride 102 mmol/L (101-111) 05/03/17 05:51 Carbon Dioxide 24 mmol/L (22-32) 05/03/17 05:51 Anion Gap 8 mmol/L (2-11) 05/03/17 05:51 BUN 12 mg/dL (6-24) 05/03/17 05:51 Creatinine 0.91 mg/dL (0.67-1.17) 05/03/17 05:51 Est GFR ( Amer) 106.9 (>60) 05/03/17 05:51 Est GFR (Non-Af Amer) 83.1 (>60) 05/03/17 05:51 BUN/Creatinine Ratio 13.2 (8-20) 05/03/17 05:51 Glucose 117 mg/dL (70-100) H 05/03/17 05:51 Calcium 9.5 mg/dL (8.6-10.3) 05/03/17 05:51 C-Reactive Protein 20.13 mg/L (< 5.00) H 04/30/17 16:53 L thigh wound irrigated with NS,drainage serosang;repacked with NS moistened 4x4 's,bulky abd and wrapped with emily;tolerated well [] Assessment:pod#2 s/p I&D left thigh abscess,stable [] Plan:cont local wound care antibiotics per ID discharge plan per Dr Ramos []
--- NOTE | 2017-05-03 13:52 | PN ---
Subjective Date of Service: 05/03/17 Interval History: 4/10 pain with dressing change today. some IV morphine overnight. had BM yesterday no other complaints. Objective Active Medications: Acetaminophen (Tylenol Tab*) 650 mg PO Q4H PRN PRN Reason: PAIN Hydrocodone Bitart/Acetaminophen ([place] 5-325 Tab*) 2 tab PO Q4H PRN PRN Reason: PAIN Last Admin: 05/03/17 08:04 Dose: 2 tab Allopurinol (Zyloprim Tab*) 300 mg PO DAILY [facility] Last Admin: 05/03/17 08:04 Dose: 300 mg Amlodipine Besylate (Norvasc Tab*) 10 mg PO DAILY [facility] Last Admin: 05/03/17 08:03 Dose: 10 mg Amphetamine/Dextroamphetamine (Adderal Xr (Nf)) 10 mg PO QAM [facility] Last Admin: 05/03/17 08:03 Dose: 10 mg Atorvastatin Calcium (Lipitor*) 10 mg PO BEDTIME [facility] Last Admin: 05/02/17 20:32 Dose: Not Given Bupropion HCl (Wellbutrin Xl *) 150 mg PO QAM [facility] PRN Reason: Protocol Last Admin: 05/03/17 08:07 Dose: 150 mg Docusate Sodium (Colace Cap*) 100 mg PO BID PRN PRN Reason: CONSTIPATION Last Admin: 05/03/17 08:04 Dose: 100 mg Cefazolin Sodium 2 gm/ Sterile (Water) 20 mls @ 60 mls/hr IVPB Q8H [facility] Last Admin: 05/03/17 08:03 Dose: 60 mls/hr Losartan Potassium (Cozaar Tab*) 100 mg PO DAILY [facility] Last Admin: 05/03/17 08:04 Dose: 100 mg Morphine Sulfate (Morphine Inj (Syringe)*) 2 mg IV Q4H PRN PRN Reason: PAIN - MILD Last Admin: 05/03/17 10:58 Dose: 2 mg Multivitamins/Minerals (Theragran/Minerals Tab*) 1 tab PO DAILY [facility] Last Admin: 05/03/17 08:04 Dose: 1 tab Senna (Senokot Tab*) 1 tab PO DAILY PRN PRN Reason: CONSTIPATION Vital Signs - 8 hr 05/03/17 05/03/17 05/03/17 07:22 08:04 10:58 Temperature 97.6 F Pulse Rate 48 Respiratory 18 18 18 Rate Blood Pressure 143/67 (mmHg) O2 Sat by Pulse 94 Oximetry 05/03/17 05/03/17 05/03/17 11:29 11:41 13:35 Temperature Pulse Rate 86 Respiratory 17 18 17 Rate Blood Pressure 147/75 (mmHg) O2 Sat by Pulse 97 Oximetry Oxygen Devices in Use Now: None Appearance: NAD Ears/Nose/Mouth/Throat: NL Teeth, Lips, Gums, Mucous Membranes Moist Neck: NL Appearance and Movements; NL JVP Respiratory: Symmetrical Chest Expansion and Respiratory Effort, Clear to Auscultation Cardiovascular: NL Sounds; No Murmurs; No JVD Abdominal: NL Sounds; No Tenderness; No Distention Extremities: No Edema, No Clubbing, Cyanosis Skin: No Rash or Ulcers, - - bandaged left thigh w/o strikethrough Neurological: NL Sensation, NL Muscle Strength and Tone Nutrition: Taking PO's Result Diagrams: 05/03/17 05:51 05/03/17 05:51 Additional Lab and Data: Laboratory Results - last 24 hr 05/03/17 05/03/17 05:51 05:51 WBC 8.9 RBC 4.24 Hgb 14.6 Hct 43 MCV 100 H MCH 34 H MCHC 34 RDW 14 Plt Count 367 MPV 6.7 L Neut % (Auto) 67.9 Lymph % (Auto) 22.8 L [place] % (Auto) 6.8 Eos % (Auto) 1.3 Baso % (Auto) 1.2 Absolute Neuts (auto) 6.0 Absolute Lymphs (auto) 2.0 Absolute Monos (auto) 0.6 Absolute Eos (auto) 0.1 Absolute Basos (auto) 0.1 Absolute Nucleated RBC 0 Nucleated RBC % 0.1 Sodium 134 Potassium 3.9 Chloride 102 Carbon Dioxide 24 Anion Gap 8 BUN 12 Creatinine 0.91 Est GFR ( Amer) 106.9 Est GFR (Non-Af Amer) 83.1 BUN/Creatinine Ratio 13.2 Glucose 117 H Calcium 9.5 Microbiology and Other Data: Microbiology 05/01/17 14:15 Wound Anaerobic Culture - Preliminary 05/01/17 14:15 Wound Skin and Soft Tissue MRSA/MSSA (PCR - Final Mrsa Negative S.aureus Positive 05/01/17 14:15 Wound Gram Stain - Final 05/01/17 14:15 Wound Wound Culture - Preliminary Staphylococcus Aureus 04/30/17 16:53 Blood Venous Aerobic Blood Culture - Preliminary No Growth Day 2 04/30/17 16:53 Blood Venous Anaerobic Blood Culture - Preliminary No Growth Day 2 04/30/17 16:53 Blood Venous Aerobic Blood Culture - Preliminary No Growth Day 2 04/30/17 16:53 Blood Venous Anaerobic Blood Culture - Preliminary No Growth Day 2 Assess/Plan/Problems-Billing Mr Flannery is a 67 yo M who has a h/o RA on MTX who presented to [facility] from Dr. Grey's office for a L thigh abscess. MSSA on 04/24 I&D. on cefazolin. Planned bactrim 14 days. - Patient Problems (1) Abscess of left thigh Current Visit: Yes Status: Acute Code(s): L02.416 - CUTANEOUS ABSCESS OF LEFT LOWER LIMB SNOMED Code(s): 1749135 Comment: Developed after he gave himself an IM testosterone injection. s/p I& D attempts as an outpatient. MSSA on 04/24 and 05/01. s/p OR 05/01 w/ Dr. Ramos. Continue ancef for the thigh abscess and infective myositis. appreciate ID recs. Plan bactrim DS 14 days on d/c. daily packing. (2) DVT prophylaxis Current Visit: Yes Status: Acute Code(s): QGB5686 - SNOMED Code(s): 222839901 Comment: SCDs- (3) HTN (hypertension) Current Visit: Yes Status: Acute Code(s): I10 - ESSENTIAL (PRIMARY) HYPERTENSION SNOMED Code(s): 18970596 Comment: BP under ok control. Continue amlodipine 10mg and losartan 100mg daily. (4) Rheumatoid arthritis Current Visit: Yes Status: Acute Code(s): M06.9 - RHEUMATOID ARTHRITIS, UNSPECIFIED SNOMED Code(s): 50034210 Comment: MTX and leucovorin are on hold. Continue prn norco for pain. Status and Disposition: medicine inpatient. Likely d/c 05/04 to home with [facility].
[2017-05-03] MEDS: Atorvastatin* 10 MG TAB PO SCH (20:05)
[2017-05-04] MEDS: ceFAZolin 2 GM/20 ML SYRINGE IVPB Q8H IVPB SCH ×4 (00:44→07:14)
[2017-05-04] MEDS: HYDROcodone/ACETAMIN 5-325 MG* 1 TAB PO PRN ×3 (00:47→12:17)
[2017-05-04 06:15] LABS: ABS Basophils 0.1 10^3/ul (0-0.2); ABS Eosinophils 0.2 10^3/ul (0-0.6); ABS Lymphocytes 2.4 10^3/ul (1.0-4.8); ABS Monocytes 0.6 10^3/ul (0-0.8); ABS Neutrophils 4.3 10^3/ul (1.5-7.7); ABS Nucleated RBC 0 10^3/ul; Hematocrit 43 % (42-52); Hemoglobin 14.7 g/dl (14.0-18.0); Lymphocyte % 31.6 % (25-47); Mean Corpuscular HGB Conc 34 g/dl (31-36); Mean Corpuscular Hemoglobin 34 pg (27-31); Mean Corpuscular Volume 99 fL (80-94); Mean Platelet Volume 6.8 um3 (7.4-10.4); Nucleated Red Blood Cells % 0; Platelet Count 381 10^3/ul (150-450); Red Blood Count 4.36 10^6/ul (4.0-5.4); Red Cell Distribution Width 14 % (10.5-15); White Blood Count 7.6 10^3/ul (3.5-10.8)
[2017-05-04] MEDS: AMPHETAMINE PO SCH (09:17)
[2017-05-04] MEDS: BuPROPion XL* 150 MG TAB.XL PO SCH (09:17)
[2017-05-04] MEDS: Multivitamins/Minerals TAB PO SCH (09:17)
[2017-05-04] MEDS: Losartan TAB* 25 MG PO SCH (09:17)
[2017-05-04] MEDS: DEXTROAMPH PO SCH (09:17)
[2017-05-04] MEDS: amLODIPine TAB* 5 MG PO SCH (09:18)
[2017-05-04] MEDS: Allopurinol TAB* 300 MG PO SCH (09:18)
--- NOTE | 2017-05-04 10:36 | PN ---
Progress Note - Progress Note Date of Service: 05/04/17 SOAP: Subjective: Doing well-minimal pain and using STEEL TURNER very little She has had gas in ileostomy bag and feels less distended No N/V Ambulating in halls Tolerating po but minimal appetite and taking just liquids Objective: Temp Pulse Resp BP Pulse Ox 97.5 F 57 16 141/76 97 05/04/17 07:19 05/04/17 07:19 05/04/17 09:20 05/04/17 07:19 05/04/17 08:00 Intake & Output 05/02/17 05/03/17 05/04/17 05/05/17 06:59 06:59 06:59 06:59 Intake Total 2168 2203 1490 590 Output Total 2950 400 Balance -782 1803 1490 590 Intake: IV Fluids 1748 513 10 ABX - CEFAZOLIN 20 LR 600 NS (0.45%) 1148 NS (0.9%) 493 10 IVPB 20 40 30 ABX - CEFAZOLIN 20 40 20 NS (0.9%) 10 Oral 400 1650 1450 590 Output: Urine 2350 400 [place] 600 Other: Estimated Void Medium Medium # Bowel Movements 0 0 0 # Voids 1 1 1 PEX: Lungs are clear Abd is soft and less distended. Incision is clean and dry and the packing was removed and not replaced. Dry dressing placed. Ostomy pink and slightly edematous with bilious fluid in bag Ext without edema Labs noted--WBC low, this has been present in the past-will follow Assessment: POD #4 s/p sigmoid colectomy with diverting loop ileostomy Ileus resolving Plan: Advance diet to regular D/C STEEL TURNER-oral analgesia, toradol Increase activity Ostomy teaching Hopefully home in next 24-48 hours.
--- NOTE | 2017-05-04 10:39 | PN ---
Progress Note - Progress Note Date of Service: 05/04/17 SOAP: Subjective: Patient seen and examined by at bedside. Reports doing well, some pain at I&D site, tolerated with Morphine last night. Denies fever or chills. Appetite good, moving his bowels. No new complaints. Objective: Awake and alert, comfortable in bed. Vitals reviewed, afebrile, Tmax 98.6 Left thigh wound examined after packing was removed. No active bleeding or discharge. No surrounding erythema or induration. Wet to dry packing with 0.9% NS was inserted, then covered with 4x4 dressing. Labs noted, WBCs normal I/Os reviewed Assessment: A 67 y/o male, s/p I&D of left thigh abscess, improving Plan: D/C plans were discussed with Dr. Interiano, and renal social worker Patient is clinically stable for discharge to home later this afternoon. Will be covered with Bactrim DS BID for a total of 14 days Arrangements for wound packing change at home were made for tomorrow and Sunday. F/U at [facility] office with Dr. Ramos on Sunday
[2017-05-04 14:23] VITALS: BP 132/64
--- NOTE | 2017-05-04 23:47 | DS ---
DISCHARGE SUMMARY: DATE OF ADMISSION: 04/30/17 DATE OF DISCHARGE: 05/04/17 ADMITTING PROVIDER: Lizzie Manning DO CONSULTING GENERAL SURGEON: Guicho Ramos MD PRIMARY CARE PROVIDER: Dr. Blackmon. LEGAL RESEARCHER: Elisa Avila NP ATTENDING PHYSICIAN: Cheikh Interiano MD CHIEF COMPLAINT: Left thigh infection, pain, swelling. PRINCIPAL DIAGNOSES: Methicillin-susceptible Staphylococcus aureus, left thigh abscess, status post I and D with Dr. Ramos on 05/01/17. HISTORY OF PRESENT ILLNESS AND HOSPITAL COURSE: Luther Flannery is a 67-year-old male with past medical history of rheumatoid arthritis, hypertension, gout, chronic back pains, androgen deficiency, who ev betty 2 weeks administers testosterone injections into his thighs. He began having a discomfort in his left thigh lasting longer than its usual course and saw Dr. Perez on 04/20/17 and aspiration was done, Keflex started, a small amount of pus seemed to be drained. He followed with Dr. Logan for co ntinued feeling of tightness and swelling on 04/24/17 in the emergency room again with some pus was d rained and he was started on Bactrim for which he tolerated well. He again followed up with Dr. Deisy anderson on 04/27/17 and abscess was explored with forceps and a large amount of purulence was again rel eased. He followed up with Dr. Grey on day of admission, 04/30/17, who referred him for formal s urgical evaluation at the hospital. Dr. Ramos was consulted and performed additional I and D on 05/01/17, but the cultures from 04/24/17 and 05/01/17 grew MSSA. The patient was on cefazolin. He h ad daily packing changes with Surgery, wet to dry. He did have significant bleeding on 05/02/17. Hi s pain was controlled with [place] and IV morphine. He is being discharged with planned visiting [facility], packing changes wet to dry on 05/05/17 and 05/07/17, then follow up with Dr. Richard escalante n 05/08/17. Dr. Gary Grey of Infectious Disease was also consulted, he is recommending 14 day s of double-strength Bactrim upon discharge as well as holding his methotrexate while the infection i s active. DISCHARGE MEDICATIONS: Include: 1. Allopurinol 300 mg p.o. daily. 2. Amlodipine 10 mg p.o. daily. 3. Adderall 1 capsule p.o. q.a.m. 4. Wellbutrin 150 mg p.o. q.a.m. 5. Losartan 100 mg p.o. daily. 6. Multivitamin 1 tab p.o. daily. 7. Rosuvastatin 5 mg p.o. q.h.s. 8. Acetaminophen 650 mg p.o. q.6 hours (no more than 4.5 g daily when combined with [place]). 9. Cyanocobalamin 1000 mcg IM monthly. 10. Docusate 100 mg p.o. b.i.d. p.r.n. (new). 11. Flonase 2 sprays both nares daily. 12. Hydrocodone/acetaminophen 10/325 mg 1 tab p.o. q.6 hours p.r.n. (new). 13. Leucovorin 5 mg p.o. weekly (resume when methotrexate resumes). 14. Senna tab 1 tab p.o. daily p.r.n. (new). 15. Bactrim double strength 800/160 mg p.o. b.i.d. for 14 days (new). 16. Testosterone cypionate 150 mg IM twice monthly. Of note, methotrexate 10 mg p.o. weekly is recommended to be held until infection has resolved. Please follow up with Dr. Blackmon and Dr. Elisa Avila. DISCHARGE DIET: No restrictions. ACTIVITY LEVEL: No restrictions. FOLLOWUP: Please follow up with Dr. Guicho Ramos on 05/08/17 at 9 a.m., Dr. Danita Blackmon on 05/07/17, at 4 p.m. [facility] will be doing packing changes on 05/05/17 and 05/07/17. TIME SPENT ON DISCHARGE: 35 minutes. [id number]/[facility] #: [id number]
== END 2017-05-04 15:00 | disposition home or self-care (01) | DRG 580 ==
LOC: MED 14:54 → OBSVTOIN 05-01 15:10
PROVIDERS: ADMIT Hospitalist; ATTEND Internal Medicine
PROC: 0JDM0ZZ Extraction of Left Upper Leg Subcutaneous Tissue and Fascia, Open Approach (ICD-10-PCS; 2017-05-01)
PROC: 0KCR0ZZ Extirpation of Matter from Left Upper Leg Muscle, Open Approach (ICD-10-PCS; principal; 2017-05-01 13:00)
DX: L02.416 Cutaneous abscess of left lower limb (principal); M60.052 Infective myositis, left thigh; K56.7 Ileus, unspecified; B95.61 Methicillin susceptible Staphylococcus aureus infection as the cause of diseases classified elsewhere; M06.9 Rheumatoid arthritis, unspecified; G89.29 Other chronic pain; M54.9 Dorsalgia, unspecified; M10.9 Gout, unspecified; I10 Essential (primary) hypertension; Z96.643 Presence of artificial hip joint, bilateral; F32.9 Major depressive disorder, single episode, unspecified; F90.9 Attention-deficit hyperactivity disorder, unspecified type; E66.9 Obesity, unspecified; S70.12XA Contusion of left thigh, initial encounter; X58.XXXA Exposure to other specified factors, initial encounter; Z96.659 Presence of unspecified artificial knee joint; E29.1 Testicular hypofunction; Z82.5 Family history of asthma and other chronic lower respiratory diseases; Z81.1 Family history of alcohol abuse and dependence; Z82.0 Family history of epilepsy and other diseases of the nervous system; Z72.89 Other problems related to lifestyle; Z68.34 Body mass index [BMI] 34.0-34.9, adult; Z87.891 Personal history of nicotine dependence; Y92.9 Unspecified place or not applicable; Z93.2 Ileostomy status
CPT/HCPCS: 36415; 80048; 85025; 85027; 85610; 86140; 87040; 87070; 87073; 87077; 87186; 87205; 87640; 87641; A9270-GY; G0378; J0690; J1170; J2250; J2270; J2704; J3010

== ENCOUNTER 2018-02-04 11:42 | Emergency (ER) | payer OTHER ==
--- NOTE | 2018-02-04 14:13 | ED ---
Back Pain - HPI Summary HPI Summary: Pt here w/ acute on chronic LBP and Rt hip pain since falling Sunday. Reports he slipped on [facility] driveway which is on an incline. Pain was worse after fall so took more of his hydrocodone 10/325mg than rx'd. He is now out of his hydrocodone rx and cannot refill until 02/07 - reports pain is same in quality and no new deficits from injury but pain is worse. Denies new paresthesia, weakness, change in bowel/bladder habits. He's had weakness in Rt foot with dorsiflexion and reduced sensation along Rt lateral thigh - these sx are not new. - History of Current Complaint Chief Complaint: EDBackInjuryPain Stated Complaint: SEVERE BACK PAIN Time Seen by Provider: 02/04/18 12:33 Hx Obtained From: Patient Pain Intensity: 8 - Allergies/Home Medications Allergies/Adverse Reactions: Allergies Allergy/AdvReac Type Severity Reaction Status Date / Time No Known Allergies Allergy Verified 05/01/17 11:43 PMH/Surg Hx/FS Hx/Imm Hx Previously Healthy: Yes Endocrine/Hematology History: Denies: Hx Anticoagulant Therapy, Hx Diabetes Cardiovascular History: Reports: Hx Hypertension - norvasc used by pt Denies: Hx Pacemaker/ICD Respiratory History: Denies: Hx Asthma History: Denies: Hx Dialysis, Hx Renal Disease Musculoskeletal History: Reports: Hx Arthritis, Hx Back Problems - CHONIC LOWER BACK PAIN/SCIATICA, Hx Gout, Hx Joint Replacement - B/L hip Sensory History: Reports: Hx Contacts or Glasses - contact lenses, Hx Vision Problem Denies: Hx Eye Injury, Hx Eye Prosthesis, Hx Glaucoma, Hx Legally Blind, Hx Macular Degeneration, Hx Deafness, Hx Hearing Aid, Hx Hearing Problem, Other Sensory Impairments Opthamlomology History: Reports: Hx Contacts or Glasses - contact lenses, Hx Vision Problem Denies: Hx Eye Injury, Hx Eye Prosthesis, Hx Glaucoma, Hx Legally Blind, Hx Macular Degeneration, Other Sensory Impairments Psychiatric History: Reports: Hx Anxiety - MILD CLAUSTROPHOBIA Denies: Hx Panic Disorder - Surgical History Surgery Procedure, Year, and Place: bilateral hip replacements RIGHT 2006, LEFT 1997. hernia repairs, cryptorchid repair, cyst removed from rt elbow,. rt knee athroscopy 1997. BL TESTECTLAR SURGERY CHILD. RIGHT FEMORAL NECK SX/ EXCISION NECROTIC BONE BY DR PEREZ AROUND 1989 Infectious Disease History: No Infectious Disease History: Denies: Traveled Outside the [place] in Last 30 Days - Family History Known Family History: Positive: Respiratory Disease - Father: COPD Family History: Mother: gastric CA - Social History Lives: With Family Alcohol Use: None Hx Substance Use: No Substance Use Type: Reports: None Hx Tobacco Use: No Smoking Status (MU): Former Smoker Review of Systems Constitutional: Negative Eyes: Negative ENT: Negative Cardiovascular: Negative Respiratory: Negative Gastrointestinal: Negative Negative: incontinence Positive: Arthralgia, Myalgia Skin: Negative Neurological: Other - baseline Psychological: Normal All Other Systems Reviewed And Are Negative: Yes Physical Exam Triage Information Reviewed: Yes Vital Signs On Initial Exam: Initial Vitals Temp Pulse Resp BP Pulse Ox 97.3 F 85 18 143/78 95 02/04/18 11:55 02/04/18 11:55 02/04/18 11:55 02/04/18 11:55 02/04/18 11:55 Vital Signs Reviewed: Yes Appearance: Positive: Well-Appearing, Pain Distress - mild to moderate, Obese Skin: Positive: Warm, Skin Color Reflects Adequate Perfusion, Dry - no meera erythema, ecchymosis or hematoma/skin breakdown observed Head/Face: Positive: Normal Head/Face Inspection Eyes: Positive: Normal ENT: Positive: Hearing grossly normal Respiratory/Lung Sounds: Positive: Breath Sounds Present Cardiovascular: Positive: Pulses are Symmetrical in both Upper and Lower Extremities. Negative: Leg Edema Left, Leg Edema Right Musculoskeletal: Positive: Limited @ - Rt dorsiflexion 3/5 compared to Lt 5/5 - pt reports this is baseline, Pain @ - Rt hip pain - pt reports this is baseline , Other - no meera crepitus or deformity of hip - able to flex and extend w/o difficulty Neurological: Positive: Alert, Oriented to Person Place, Time, CN Intact II- III. Negative: Sensory/Motor Intact - decreased sensation along Rt lateral thigh compared to Lt - pt reports this is baseline Psychiatric: Positive: Anxious Diagnostics - Vital Signs Vital Signs Temp Pulse Resp BP Pulse Ox 02/04/18 11:55 97.3 F 85 18 143/78 95 - Laboratory Lab Statement: Any lab studies that have been ordered have been reviewed, and results considered in the medical decision making process. Back Pain Course/Dx - Course Course Of Treatment: Recommend Rt hip XR s/p fall w/ increased pain, especially since he's had a hip replcament here. Pt declines hip/back XR s/p fall and reports he will assume responsibility of a missed injury here - understands risks of foregoing testing. Agrees to return to ED if pain worse or new sx present. ISTOP Reference #: [id number] - Diagnoses Provider Diagnoses: Fall from standing, Right hip pain Discharge - Sign-Out/Discharge Documenting (check all that apply): Patient Departure - Discharge Plan Condition: Stable Disposition: HOME Prescriptions: HYDROcodone/ACETAMIN 5-325 MG* [[place] 5-325 TAB*] 2 tab PO Q6H PRN #24 tab MDD 8 PRN Reason: Pain Patient Education Materials: Hip Pain (ED) Referrals: Danita Blackmon MD [Primary Care Provider] - Additional Instructions: You have declined imaging today since your fall. It is important that you follow -u with your PCP if pain persists and return to the ED if you change your mind about imaging and especially if symptoms worsen. - Billing Disposition and Condition Condition: STABLE Disposition: Home
[2018-02-04] MEDS ORDERED: HYDROcodone/ACETAMIN 5-325 MG* 1 TAB PO ONE (14:26)
[2018-02-04 14:42] VITALS: BP 141/66
== END 2018-02-04 14:41 | disposition home or self-care (01) ==
LOC: ED 11:42
DX: M25.551 Pain in right hip (principal); M54.5 Low back pain; I10 Essential (primary) hypertension; Z96.643 Presence of artificial hip joint, bilateral; Z87.891 Personal history of nicotine dependence
CPT/HCPCS: 99282

== ENCOUNTER 2018-11-18 17:48 | Emergency (ER) | payer MEDICARE, OTHER ==
--- OUTSIDE RECORDS SUMMARY | 2018-11-18 18:33 | XMS REPORT | Continuity of Care Document ---
:1950 External Reference #:[id number] Author Name Pankaj Lara M.D. (transmitted by agent of provider Carmela Emerson) Address [address] [place] [address] [place] [address] Care Team Providers Name Role Phone Danita Blackmon MD - Family Care Team Information Business Banking Representative [phone] Medicine Problems Active Problems Provider Date Gout Donnie Mendoza M.D. Onset: 07/12/2012 Lumbosacral spondylosis without myelopathy Donnie Mendoza M.D. Onset: 2012 Degenerative joint disease of pelvis Donnie Mendoza M.D. Onset: 07/12/2012 Localized, primary osteoarthritis of the hand Donnie Mendoza M.D. Onset: Multiple joint pain Donnie Mendoza M.D. Onset: 08/22/2013 Taking medication Donnie Mendoza M.D. Onset: 11/25/2013 Rheumatoid arthritis Donnie Mendoza M.D. Onset: 11/25/2013 Joint pain INGRID Chaudhry Onset: 11/03/2014 Lumbar spondylosis INGRID Chaudhry Onset: 11/03/2014 Social History Type Date Description Comments Sex Unknown ETOH Use Drinks 6 Alcoholic Beverages Per Week Tobacco Use Start: Unknown End: Patient is a former hasn't smoked in 30 Unknown smoker years Recreational Drug Use Denies Drug Use Smoking Status Reviewed: 11/18/18 Patient is a former hasn't smoked in 30 smoker years Exercise Type/Frequency Exercises regularly Allergies, Adverse Reactions, Alerts Description No Known Drug Allergies Medications Active Medications SIG Qnty Indications Ordering Provider Date Gabapentin Take One Capsule 30caps M47.816 Elisa Avila, 03/04/2018 100mg Capsules By Mouth Every [employer] Evening Methotrexate 4 tbs by mouth 60tabs M06.09 Elisa Avila, 11/03/2014 2.5mg every week [employer]ER Tablets Z79.899 Leucovorin Calcium Take One Tablet By 4tabs Z79.899 Elisa Avila, 2014 Mouth Weekly The Day [employer]CRE[employer] TE[employer]ER 5mg Tablets After Methotrexate Hydrocodone-Acetamin take one tablet by 150tabs Elisa Avila, 05/05/2014 ophen mouth every 4 to 6 [employer]CRE[employer] TE[employer]ER 10-325mg hours as needed; Tablets maximum daily dose = 5 Folic Acid take one tablet by 30tabs M06.09 Elisa Avila, 11/25/2013 1mg mouth every day [employer] TE[employer]ER Tablets Z79.899 Allopurinol take one tablet by 30tabs M10.9 Elisa Avila, [employer]ER 05/10/2010 300mg Tablets mouth every day Z79.899 Amlodipine Besylate 1 po qd 30tabs Unknown 10mg Tablets Losartan Potassium 1 po qd 100tabs Unknown 100mg Tablets Wellbutrin XL 1 by mouth every day 30tabs Unknown 150mg Tablets ER 24HR Adderall 1 tab daily Unknown 10mg Tablets Flonase Allergy Relief spray 1 spray in each Unknown 50mcg/Act nostril twice daily as Suspension needed Cialis half to one tab 30 minutes Unknown 20mg Tablets prior to intercourse prn Vitamin B12 inject one ML once monthly Unknown 1000mcg/ML Liquid as directed Multivitamin Adult 1 by mouth every day Unknown Tablets Testosterone Apply Two Pumps To The Skin Unknown 20.25mg/Act (1.62%) Gel Every Morning To Upper Arm And Shoulder as Directed Maximum Daily Dose 2 Pumps Fenofibrate Unknown Immunizations CPT Code Status Date Vaccine Reaction Lot # [id number] Given 02/16/2015 Influenza Virus Vaccine, no reaction noted [id number] Quadrivalent, Split, Preservative Free Vital Signs Date Vital Result Comment 11/18/2018 10:46am Height 70 inches 5'10" Weight 256.25 lb Heart Rate 80 /min BP Systolic 160 mmHg BP Diastolic 98 mmHg Respiratory Rate 18 /min Body Temperature 98.2 F Pain Level 10 BMI (Body Mass Index) 36.8 kg/m2 05/06/2018 3:51pm Height 71 inches 5'11" Weight 260.00 lb Heart Rate 88 /min BP Systolic Sitting 134 mmHg BP Diastolic Sitting 88 mmHg Respiratory Rate 14 /min Pain Level 5 BMI (Body Mass Index) 36.3 kg/m2 Results Description No Information Available Procedures Description No Information Available Medical Devices Description No Information Available Encounters Description No Information Available Assessments Date Code Description Provider 11/18/2018 Z96.642 Presence of left artificial hip joint Pankaj Lara M.D. Plan of Treatment Future Appointment(s):11/27/2018 9:30 am - Gr[facility] M[facility] at [facility]11/18/2018 - Pankaj Lara M.D.Z96.642 Presence of left artificial hip jointNew Labs:CBC Auto Diff, Ordered: 11/18/18C Reactive Protein , Ordered: 11/18/18Erythrocyte Sed Rate, Ordered: 11/18/18Follow up:Follow up: Dr. Marte Must rest and use a walker Go to the Emergency Room if too much pain and trouble Functional Status Description No Information Available Mental Status Description No Information Available Referrals Description No Information Available
[2018-11-18] MEDS ORDERED: Ketorolac INJ* 30 MG/ML 1 ML VIAL IM ONE (19:02)
--- NOTE | 2018-11-18 19:23 | ED ---
Lower Extremity - HPI Summary HPI Summary: Patient complains of acute on chronic left hip pain, with associated decreased mobility. States she has run out of his pain medication and they cannot be refilled until November 22. Patient has history of left hip replacement by orthopedic surgeon Dr. Lara. Evaluated by Dr. Lara today for same symptoms with x-rays taken. Results unknown at this time. Patient states he was given no pain medication by Dr. Perez. Patient states he has appointment with pain management tomorrow. Denies any other symptoms, pain or injury. Medical history is HTN, GI bleed. - History of Current Complaint Chief Complaint: EDMedicationRefill Stated Complaint: LT HIP PAIN PER PT Time Seen by Provider: 11/18/18 18:13 Hx Obtained From: Patient Mechanism Of Injury: Unknown Onset/Duration: Weeks Severity Initially: Severe Severity Currently: Severe Pain Intensity: 10 Pain Scale Used: 0-10 Numeric Timing: Constant Location: Is Discrete @ Character Of Pain: Aching, Throbbing Associated Signs And Symptoms: Positive: Negative Aggravating Factor(s): Standing, Ambulation Alleviating Factor(s): Rest Able to Bear Weight: Yes - Allergies/Home Medications Allergies/Adverse Reactions: Allergies Allergy/AdvReac Type Severity Reaction Status Date / Time rosuvastatin AdvReac Nausea And Verified 09/20/18 09:08 Vomiting PMH/Surg Hx/FS Hx/Imm Hx Endocrine/Hematology History: Denies: Hx Anticoagulant Therapy, Hx Diabetes Cardiovascular History: Reports: Hx Hypertension - norvasc used by pt Denies: Hx Pacemaker/ICD Respiratory History: Denies: Hx Asthma History: Denies: Hx Dialysis, Hx Renal Disease Musculoskeletal History: Reports: Hx Arthritis, Hx Back Problems - CHONIC LOWER BACK PAIN/SCIATICA, Hx Gout Sensory History: Reports: Hx Contacts or Glasses - contact lenses, Hx Vision Problem Denies: Hx Eye Injury, Hx Eye Prosthesis, Hx Glaucoma, Hx Legally Blind, Hx Macular Degeneration, Hx Deafness, Hx Hearing Aid, Hx Hearing Problem, Other Sensory Impairments Opthamlomology History: Reports: Hx Contacts or Glasses - contact lenses, Hx Vision Problem Denies: Hx Eye Injury, Hx Eye Prosthesis, Hx Glaucoma, Hx Legally Blind, Hx Macular Degeneration, Other Sensory Impairments EENT History: Denies: Hx Deafness Psychiatric History: Reports: Hx Anxiety - MILD CLAUSTROPHOBIA Denies: Hx Panic Disorder - Surgical History Surgery Procedure, Year, and Place: bilateral hip replacements RIGHT 2006, LEFT 1997. hernia repairs, cryptorchid repair, cyst removed from rt elbow,. rt knee athroscopy 1997. BL TESTECTLAR SURGERY CHILD. RIGHT FEMORAL NECK SX/ EXCISION NECROTIC BONE BY DR PEREZ AROUND 1989 Infectious Disease History: No Infectious Disease History: Denies: Traveled Outside the [place] in Last 30 Days - Family History Known Family History: Positive: Respiratory Disease - Father: COPD Family History: Mother: gastric CA - Social History Alcohol Use: Weekly Alcohol Amount: 4-6 Hx Substance Use: No Substance Use Type: Reports: None Hx Tobacco Use: No Smoking Status (MU): Former Smoker Review of Systems Constitutional: Negative Eyes: Negative ENT: Negative Cardiovascular: Negative Respiratory: Negative Gastrointestinal: Negative Genitourinary: Negative Musculoskeletal: Other Skin: Negative Neurological: Negative Psychological: Normal All Other Systems Reviewed And Are Negative: Yes Physical Exam - Summary Physical Exam Summary: Patient able to flex and extend the left hip and left knee with some pain. Mild pain with palpation over the left hip. No ecchymosis, erythema, deformity , swelling noted. PMS intact distally. Triage Information Reviewed: Yes Vital Signs On Initial Exam: Initial Vitals Temp Pulse Resp BP Pulse Ox 98.8 F 75 20 189/109 96 11/18/18 17:59 11/18/18 17:59 11/18/18 17:59 11/18/18 17:59 11/18/18 17:59 Vital Signs Reviewed: Yes Appearance: Positive: Well-Appearing Skin: Positive: Warm Head/Face: Positive: Normal Head/Face Inspection Eyes: Positive: Normal Neck: Positive: Supple Respiratory/Lung Sounds: Positive: Clear to Auscultation Cardiovascular: Positive: Normal Abdomen Description: Positive: Nontender Musculoskeletal: Positive: Normal Neurological: Positive: Normal Psychiatric: Positive: Normal AVPU Assessment: Alert - [place] Coma Scale Best Eye Response: 4 - Spontaneous Best Motor Response: 6 - Obeys Commands Best Verbal Response: 5 - Oriented Coma Scale Total: 15 Procedures - Sedation Patient Received Moderate/Deep Sedation with Procedure: No Diagnostics - Vital Signs Vital Signs Temp Pulse Resp BP Pulse Ox 11/18/18 17:59 98.8 F 75 20 189/109 96 - Laboratory Lab Statement: Any lab studies that have been ordered have been reviewed, and results considered in the medical decision making process. Lower Extremity Course/Dx - Course Course Of Treatment: Patient complains of acute on chronic left hip pain, with associated decreased mobility. States she has run out of his pain medication and they cannot be refilled until November 22. Patient has history of left hip replacement by orthopedic surgeon Dr. Lara. Evaluated by Dr. Lara today for same symptoms with x-rays taken. Results unknown at this time. Patient states he was given no pain medication by Dr. Perez. Patient states he has appointment with pain management tomorrow. Denies any other symptoms, pain or injury. Medical history is HTN, GI bleed. Vital signs within normal limits. Patient had moderate pain improvement with IM Toradol, lidocaine patch. Rx for lidocaine patch. Patient has follow-up for pain control. - Diagnoses Provider Diagnoses: Chronic left hip pain Discharge ED - Sign-Out/Discharge Documenting (check all that apply): Patient Departure - Discharge Plan Condition: Stable Disposition: HOME Prescriptions: Lidocaine PATCH 5%* [Lidoderm 5% Patch*] 1 patch TRANSDERM DAILY 10 Days #10 patch Patient Education Materials: Hip Pain (ED) Referrals: Danita Blackmon MD [Primary Care Provider] - Additional Instructions: Follow-up with orthopedics Dr. Gonzales tomorrow for further evaluation and management of left hip pain. Use lidocaine patches as directed if needed for hip pain. Take ibuprofen as directed if needed for hip pain. Follow-up with pain management for opiate pain control. - Billing Disposition and Condition Condition: STABLE Disposition: Home
[2018-11-18 19:44] VITALS: BP 136/68
[2018-11-18] MEDS ORDERED: Lidocaine PATCH 5%* 1 PATCH TRANSDERM SCH (20:00)
[2018-11-18] MEDS ORDERED: Lidocaine Patch REMOVE* 1 NOTE MISC PATCH OFF SCH (21:00)
== END 2018-11-18 19:43 | disposition home or self-care (01) ==
LOC: ED 17:48
DX: M25.552 Pain in left hip (principal); G89.29 Other chronic pain; I10 Essential (primary) hypertension; F41.9 Anxiety disorder, unspecified; Z87.891 Personal history of nicotine dependence; Z96.643 Presence of artificial hip joint, bilateral; Z79.899 Other long term (current) drug therapy; Z88.8 Allergy status to other drugs, medicaments and biological substances
CPT/HCPCS: 96372; 99282; A9270-GY; J1885

== ENCOUNTER 2020-03-04 11:17 | Inpatient (IN) ==
[2020-03-04] MEDS ORDERED: HYDROcodone/ACETAMIN 5/325 mg TAB PO ONE (12:32)
[2020-03-04 12:53] LABS: ABS Eosinophils 0.1 10^3/ul (0-0.6); ABS Lymphocytes 1.3 10^3/ul (1.0-4.8); ABS Monocytes 0.6 10^3/ul (0-0.8); ABS Neutrophils 5.3 10^3/ul (1.5-7.7); Hematocrit 46 % (42-52); Hemoglobin 16.1 g/dL (14.0-18.0); Lymphocyte % 17.6 %; Mean Corpuscular HGB Conc 35 g/dL (31-36); Mean Corpuscular Hemoglobin 35 pg (27-31); Mean Corpuscular Volume 100 fL (80-94); Mean Platelet Volume 8.1 fL (7.4-10.4); Platelet Count 200 10^3/uL (150-450); Red Blood Count 4.57 10^6 /uL (4.18-5.48); Red Cell Distribution Width 13 % (10-15); White Blood Count 7.3 10^3/uL (3.5-10.8)
[2020-03-04 13:15] LABS: ALT 23 U/L (7-52); AST 39 U/L (13-39); Albumin 4.2 g/dL (3.2-5.2); Albumin/Globulin Ratio 1.4 (1-3); Alkaline Phosphatase 74 U/L (34-104); Anion Gap 9 mmol/L (2-11); BUN/Creatinine Ratio 13.8 (8-20); Blood Urea Nitrogen 11 mg/dL (6-24); CO2 Carbon Dioxide 26 mmol/L (22-32); Calcium 9.3 mg/dL (8.6-10.3); Chloride 102 mmol/L (101-111); EGFR African American 115.6 (>60); EGFR Non-African American 95.6 (>60); Globulin 2.9 g/dL (2-4); Glucose 133 mg/dL (70-100); Magnesium 1.6 mg/dL (1.9-2.7); Potassium 3.5 mmol/L (3.5-5.0); Sodium 137 mmol/L (135-145); Total Protein 7.1 g/dL (6.4-8.9)
[2020-03-04 13:17] LABS: Troponin I 0.11 ng/mL (<0.03)
[2020-03-04] MEDS ORDERED: levETIRAcetam 1000MG IVPREMIX 1,000 MG/100 ML BAG IVPB ONE (13:50)
[2020-03-04 14:00] LABS: TSH Ultra Thyroid Stim Horm 7.93 mcIU/mL (0.34-5.60)
[2020-03-04 14:24] LABS: Activated Partial Thrombo Time 32.1 seconds (26.0-38.0); INR 1.13 (0.82-1.09)
[2020-03-04] MEDS ORDERED: Fluticasone NASAL SPRAY 50MCG 16 gm SPRAY BTL BOTH NARES PRN (16:22)
[2020-03-04] MEDS ORDERED: Magnesium Sulf 4 GM/100 ML IV 4,000 MG/100 ML BAG IVPB ONE (16:22)
[2020-03-04] MEDS ORDERED: HYDROcodone/ACETAMIN 5/325 mg TAB PO PRN (16:27)
[2020-03-04] MEDS ORDERED: Cyanocobalamin INJ 1,000 MCG/ML VIAL 1 ML VIAL IM SCH (17:00)
[2020-03-04] MEDS: Lactated Ringers 1000 ml BAG 1,000 ML IV SCH (18:27)
[2020-03-04] MEDS: hydrALAZINE 20 mg/ml 1 ML Vial IV IV SLOW PU PRN (18:47)
[2020-03-04 19:23] LABS: Troponin I 0.12 ng/mL (<0.03)
[2020-03-04] MEDS: HYDROcodone/ACETAMIN 5/325 mg TAB PO PRN ×3 (20:22→23:53)
[2020-03-04] MEDS ORDERED: NS 0.9% IVPB SCH (21:00)
[2020-03-04] MEDS ORDERED: LEVETIRACETAM IVPB SCH (21:00)
[2020-03-04] MEDS: levETIRAcetam IV 500 MG in NS 0.9% 100 ml BAG 100 ML IVPB SCH (21:28)
[2020-03-04 22:29] LABS: Troponin I 0.12 ng/mL (<0.03)
[2020-03-04] MEDS: niCARdipine 0.1MG/ML IVPREMIX 20 MG/200 ML BAG IV SCH (22:32)
[2020-03-04 22:35] LABS: Urine Appearance Cloudy; Urine Bilirubin Negative (Negative); Urine Blood 3+ (Negative); Urine Color Yellow; Urine Glucose Negative (Negative); Urine Ketones Negative (Negative); Urine Nitrite Negative (Negative); Urine Protein Negative (Negative); Urine Specific Gravity 1.017 (1.010-1.030); Urine Urobilinogen Negative (Negative)
[2020-03-04 22:52] LABS: Urine Benzodiazepine Screen None Detected (None Detect); Urine Cannabinoids Screen None Detected (None Detect); Urine Opiates Screen Presumptive Positive (None Detect)
[2020-03-04 23:01] LABS: Urine Bacteria Absent (Absent); Urine Red Blood Cell 3+(>10/hpf) (Absent); Urine White Blood Cell Absent (Absent)
[2020-03-05] MEDS: niCARdipine 0.1MG/ML IVPREMIX 20 MG/200 ML BAG IV SCH ×13 (01:18→23:40)
[2020-03-05] MEDS: HYDROcodone/ACETAMIN 5/325 mg TAB PO PRN ×5 (03:53→20:19)
[2020-03-05 04:23] LABS: Hematocrit 42 % (42-52); Hemoglobin 14.4 g/dL (14.0-18.0); Mean Corpuscular HGB Conc 34 g/dL (31-36); Mean Corpuscular Hemoglobin 35 pg (27-31); Mean Corpuscular Volume 101 fL (80-94); Mean Platelet Volume 7.9 fL (7.4-10.4); Platelet Count 203 10^3/uL (150-450); Red Blood Count 4.13 10^6 /uL (4.18-5.48); Red Cell Distribution Width 13 % (10-15); White Blood Count 8.4 10^3/uL (3.5-10.8)
[2020-03-05 04:27] LABS: INR 1.14 (0.82-1.09)
[2020-03-05 04:41] LABS: BUN/Creatinine Ratio 14.9 (8-20); Calcium 8.8 mg/dL (8.6-10.3); EGFR African American 141.9 (>60); EGFR Non-African American 117.3 (>60); Magnesium 1.9 mg/dL (1.9-2.7); Phosphorus 2.2 mg/dL (2.5-5.0); Potassium 3.6 mmol/L (3.5-5.0)
[2020-03-05 04:51] LABS: Troponin I 0.12 ng/mL (<0.03)
[2020-03-05] MEDS ORDERED: NS 0.9% 100 ml BAG 100 ML ONE (07:48)
[2020-03-05] MEDS: Cholecalciferol (VIT D3) 1,000 unit TAB PO SCH (08:01)
[2020-03-05] MEDS: DULoxetine DR 60 mg CAP PO SCH (08:01)
[2020-03-05] MEDS: Vitamin THERAPEUTIC TAB PO SCH (08:01)
[2020-03-05] MEDS: KCL 10 MEQ/50 ML IVPREMIX 10 MEQ/50 ML BAG IV SCH ×2 (08:09→09:41)
[2020-03-05] MEDS: levETIRAcetam IV 500 MG in NS 0.9% 100 ml BAG 100 ML IVPB SCH (08:10)
[2020-03-05] MEDS: Lactated Ringers 1000 ml BAG 1,000 ML IV SCH (13:06)
[2020-03-05] MEDS: Analgesic BALM 114 GM TOPICAL SCH ×2 (13:07→20:04)
[2020-03-05] MEDS: levETIRAcetam 500 MG/100 ML IV SCH (20:03)
[2020-03-06] MEDS: HYDROcodone/ACETAMIN 5/325 mg TAB PO PRN ×5 (00:04→23:16)
[2020-03-06] MEDS: niCARdipine 0.1MG/ML IVPREMIX 20 MG/200 ML BAG IV SCH ×11 (00:56→17:09)
[2020-03-06] MEDS ORDERED: Ondansetron 4 mg VIAL 2 MG/ML 2 ml VIAL ONE (03:25)
[2020-03-06 04:27] LABS: ABS Basophils 0.1 10^3/ul (0-0.2); ABS Eosinophils 0.1 10^3/ul (0-0.6); ABS Lymphocytes 2.1 10^3/ul (1.0-4.8); ABS Monocytes 0.7 10^3/ul (0-0.8); ABS Neutrophils 5.1 10^3/ul (1.5-7.7); Eosinophil % 1.6 %; Hematocrit 39 % (42-52); Hemoglobin 13.4 g/dL (14.0-18.0); Lymphocyte % 26.2 %; Mean Corpuscular HGB Conc 34 g/dL (31-36); Mean Corpuscular Hemoglobin 35 pg (27-31); Mean Corpuscular Volume 101 fL (80-94); Mean Platelet Volume 7.5 fL (7.4-10.4); Platelet Count 196 10^3/uL (150-450); Red Blood Count 3.83 10^6 /uL (4.18-5.48); Red Cell Distribution Width 13 % (10-15); White Blood Count 8.1 10^3/uL (3.5-10.8)
[2020-03-06 04:32] LABS: INR 1.11 (0.82-1.09)
[2020-03-06 04:43] LABS: BUN/Creatinine Ratio 19.2 (8-20); EGFR African American 119.1 (>60); EGFR Non-African American 98.4 (>60); Potassium 3.9 mmol/L (3.5-5.0)
[2020-03-06] MEDS: Lactated Ringers 1000 ml BAG 1,000 ML IV SCH (07:09)
[2020-03-06] MEDS: Cholecalciferol (VIT D3) 1,000 unit TAB PO SCH (08:25)
[2020-03-06] MEDS: DULoxetine DR 60 mg CAP PO SCH (08:25)
[2020-03-06] MEDS: Vitamin THERAPEUTIC TAB PO SCH (08:26)
[2020-03-06] MEDS: levETIRAcetam 500 MG/100 ML IV SCH ×2 (08:57→20:21)
[2020-03-06] MEDS: Analgesic BALM 114 GM TOPICAL SCH ×3 (10:43→20:20)
[2020-03-06] MEDS: hydrALAZINE 20 mg/ml 1 ML Vial IV IV SLOW PU PRN (12:26)
[2020-03-06] MEDS ORDERED: niCARdipine 0.1MG/ML IVPREMIX 20 MG/200 ML BAG IV SCH (18:32)
[2020-03-07] MEDS: HYDROcodone/ACETAMIN 5/325 mg TAB PO PRN ×5 (02:47→23:38)
[2020-03-07 06:35] LABS: ABS Basophils 0.1 10^3/ul (0-0.2); ABS Eosinophils 0.1 10^3/ul (0-0.6); ABS Lymphocytes 1.9 10^3/ul (1.0-4.8); ABS Monocytes 0.7 10^3/ul (0-0.8); ABS Neutrophils 4.3 10^3/ul (1.5-7.7); Eosinophil % 1.3 %; Hematocrit 40 % (42-52); Hemoglobin 13.7 g/dL (14.0-18.0); Lymphocyte % 27.4 %; Mean Corpuscular HGB Conc 35 g/dL (31-36); Mean Corpuscular Hemoglobin 35 pg (27-31); Mean Corpuscular Volume 101 fL (80-94); Mean Platelet Volume 7.3 fL (7.4-10.4); Nucleated Red Blood Cells % 0.1; Platelet Count 169 10^3/uL (150-450); Red Cell Distribution Width 13 % (10-15); White Blood Count 7.1 10^3/uL (3.5-10.8)
[2020-03-07 06:45] LABS: Calcium 9.4 mg/dL (8.6-10.3); Magnesium 1.5 mg/dL (1.9-2.7); Potassium 4.2 mmol/L (3.5-5.0)
[2020-03-07 06:51] LABS: BUN/Creatinine Ratio 16.2 (8-20); EGFR African American 126.5 (>60); EGFR Non-African American 104.6 (>60); Phosphorus 3.3 mg/dL (2.5-5.0)
[2020-03-07] MEDS: Cholecalciferol (VIT D3) 1,000 unit TAB PO SCH (08:32)
[2020-03-07] MEDS: DULoxetine DR 60 mg CAP PO SCH (08:33)
[2020-03-07] MEDS: Vitamin THERAPEUTIC TAB PO SCH (08:33)
[2020-03-07] MEDS: Analgesic BALM 114 GM TOPICAL SCH ×2 (08:38→14:11)
[2020-03-07] MEDS ORDERED: Magnesium Sulf 4 GM/100 ML IV 4,000 MG/100 ML BAG IVPB ONE (10:00)
[2020-03-07] MEDS: levETIRAcetam 500 MG/100 ML IV SCH (11:10)
[2020-03-08] MEDS ORDERED: HYDROcodone/ACETAMIN 5/325 mg TAB PO PRN ×2 (00:05→10:18)
[2020-03-08 07:00] LABS: ABS Basophils 0.1 10^3/ul (0-0.2); ABS Eosinophils 0.1 10^3/ul (0-0.6); ABS Lymphocytes 1.9 10^3/ul (1.0-4.8); ABS Monocytes 0.8 10^3/ul (0-0.8); ABS Neutrophils 5.1 10^3/ul (1.5-7.7); Eosinophil % 1.7 %; Hematocrit 40 % (42-52); Hemoglobin 13.8 g/dL (14.0-18.0); Lymphocyte % 23.5 %; Mean Corpuscular HGB Conc 34 g/dL (31-36); Mean Corpuscular Hemoglobin 35 pg (27-31); Mean Corpuscular Volume 102 fL (80-94); Mean Platelet Volume 7.4 fL (7.4-10.4); Platelet Count 180 10^3/uL (150-450); Red Blood Count 3.94 10^6 /uL (4.18-5.48); Red Cell Distribution Width 13 % (10-15); White Blood Count 7.9 10^3/uL (3.5-10.8)
[2020-03-08 07:15] LABS: BUN/Creatinine Ratio 14.6 (8-20); Calcium 9.8 mg/dL (8.6-10.3); EGFR African American 112.4 (>60); EGFR Non-African American 92.9 (>60); Magnesium 1.7 mg/dL (1.9-2.7); Phosphorus 3.7 mg/dL (2.5-5.0); Potassium 4.4 mmol/L (3.5-5.0)
[2020-03-08] MEDS: Analgesic BALM 114 GM TOPICAL SCH ×4 (08:07→20:56)
[2020-03-08] MEDS: Vitamin THERAPEUTIC TAB PO SCH (08:11)
[2020-03-08] MEDS: Cholecalciferol (VIT D3) 1,000 unit TAB PO SCH (08:11)
[2020-03-08] MEDS: DULoxetine DR 60 mg CAP PO SCH (08:11)
[2020-03-08] MEDS: hydrALAZINE 20 mg/ml 1 ML Vial IV IV SLOW PU PRN (08:12)
[2020-03-08] MEDS ORDERED: HYDROcodone/ACETAMIN 5/325 mg TAB PO ONE (10:04)
[2020-03-09] MEDS: hydrALAZINE 20 mg/ml 1 ML Vial IV IV SLOW PU PRN ×2 (02:34→12:28)
[2020-03-09] MEDS: DULoxetine DR 60 mg CAP PO SCH (08:24)
[2020-03-09] MEDS: Cholecalciferol (VIT D3) 1,000 unit TAB PO SCH (08:24)
[2020-03-09] MEDS: Vitamin THERAPEUTIC TAB PO SCH (08:24)
[2020-03-09] MEDS: Analgesic BALM 114 GM TOPICAL SCH ×3 (08:25→20:58)
[2020-03-10] MEDS: Vitamin THERAPEUTIC TAB PO SCH (07:57)
[2020-03-10] MEDS: DULoxetine DR 60 mg CAP PO SCH (07:57)
[2020-03-10] MEDS: Analgesic BALM 114 GM TOPICAL SCH ×3 (07:58→19:12)
[2020-03-10] MEDS: Cholecalciferol (VIT D3) 1,000 unit TAB PO SCH (07:58)
[2020-03-10] MEDS ORDERED: Morphine 2 MG/ML SYRINGE IV ONE (10:08)
[2020-03-10] MEDS: hydrALAZINE 20 mg/ml 1 ML Vial IV IV SLOW PU PRN (15:58)
[2020-03-11 07:31] LABS: ABS Eosinophils 0.1 10^3/ul (0-0.6); ABS Lymphocytes 1.7 10^3/ul (1.0-4.8); ABS Monocytes 1.2 10^3/ul (0-0.8); ABS Neutrophils 6.8 10^3/ul (1.5-7.7); Eosinophil % 0.6 %; Hematocrit 40 % (42-52); Hemoglobin 14.1 g/dL (14.0-18.0); Mean Corpuscular HGB Conc 35 g/dL (31-36); Mean Corpuscular Hemoglobin 35 pg (27-31); Mean Corpuscular Volume 99 fL (80-94); Mean Platelet Volume 7.2 fL (7.4-10.4); Platelet Count 226 10^3/uL (150-450); Red Blood Count 4.06 10^6 /uL (4.18-5.48); Red Cell Distribution Width 13 % (10-15); White Blood Count 9.7 10^3/uL (3.5-10.8)
[2020-03-11] MEDS: Cholecalciferol (VIT D3) 1,000 unit TAB PO SCH (08:26)
[2020-03-11] MEDS: Vitamin THERAPEUTIC TAB PO SCH (08:27)
[2020-03-11] MEDS: DULoxetine DR 60 mg CAP PO SCH (08:27)
[2020-03-11] MEDS: Analgesic BALM 114 GM TOPICAL SCH ×3 (08:32→20:18)
[2020-03-11 08:42] LABS: EGFR African American 107.8 (>60); EGFR Non-African American 89.1 (>60); Potassium 3.8 mmol/L (3.5-5.0)
[2020-03-11] MEDS ORDERED: NS 0.9% 1000 ml BAG 1,000 ML IV SCH (09:00)
[2020-03-11 09:01] LABS: Magnesium 1.6 mg/dL (1.9-2.7)
[2020-03-11 15:37] LABS: BUN/Creatinine Ratio 20.8 (8-20); Calcium 9.5 mg/dL (8.6-10.3); EGFR African American 120.9 (>60); EGFR Non-African American 99.9 (>60); Potassium 3.8 mmol/L (3.5-5.0)
[2020-03-11] MEDS ORDERED: Magnesium Sulf 4 GM/100 ML IV 4,000 MG/100 ML BAG IVPB ONE (16:26)
[2020-03-11] MEDS: levETIRAcetam 500 MG IVPREMIX 500 MG/100 ML BAG IV SCH (23:10)
[2020-03-11] MEDS: niCARdipine 0.1MG/ML IVPREMIX 20 MG/200 ML BAG IV SCH (23:29)
[2020-03-11] MEDS: Acetaminophen IV 1 GM/100ML 100 ML IVPB SCH (23:29)
[2020-03-12] MEDS: niCARdipine 0.1MG/ML IVPREMIX 20 MG/200 ML BAG IV SCH ×4 (04:02→18:17)
[2020-03-12 04:36] LABS: ABS Eosinophils 0.1 10^3/ul (0-0.6); ABS Lymphocytes 1.8 10^3/ul (1.0-4.8); ABS Monocytes 1.2 10^3/ul (0-0.8); ABS Neutrophils 6.9 10^3/ul (1.5-7.7); Hematocrit 38 % (42-52); Hemoglobin 13.1 g/dL (14.0-18.0); Lymphocyte % 17.8 %; Mean Corpuscular HGB Conc 35 g/dL (31-36); Mean Corpuscular Hemoglobin 34 pg (27-31); Mean Corpuscular Volume 99 fL (80-94); Platelet Count 224 10^3/uL (150-450); Red Blood Count 3.82 10^6 /uL (4.18-5.48); Red Cell Distribution Width 13 % (10-15)
[2020-03-12 04:43] LABS: INR 1.16 (0.82-1.09)
[2020-03-12 04:53] LABS: Anion Gap 7 mmol/L (2-11); BUN/Creatinine Ratio 20.7 (8-20); Blood Urea Nitrogen 17 mg/dL (6-24); CO2 Carbon Dioxide 23 mmol/L (22-32); Calcium 9.1 mg/dL (8.6-10.3); Chloride 94 mmol/L (101-111); EGFR African American 112.4 (>60); EGFR Non-African American 92.9 (>60); Glucose 118 mg/dL (70-100); Magnesium 2.3 mg/dL (1.9-2.7); Potassium 3.7 mmol/L (3.5-5.0); Sodium 124 mmol/L (135-145)
[2020-03-12] MEDS: Acetaminophen IV 1 GM/100ML 100 ML IVPB SCH ×2 (04:59→11:49)
[2020-03-12] MEDS ORDERED: Ondansetron 4 mg VIAL 2 MG/ML 2 ml VIAL ONE (05:52)
[2020-03-12 06:20] LABS: Folate > 20.00 ng/mL (>3.99)
[2020-03-12 06:21] LABS: Vitamin B12 1204 pg/mL (180-914)
[2020-03-12 07:07] LABS: Activated Partial Thrombo Time 33.5 seconds (26.0-38.0)
[2020-03-12] MEDS: Vitamin THERAPEUTIC TAB PO SCH ×3 (09:43→14:45)
[2020-03-12] MEDS: levETIRAcetam 500 MG IVPREMIX 500 MG/100 ML BAG IV SCH ×2 (09:44→20:11)
[2020-03-12] MEDS: Cholecalciferol (VIT D3) 1,000 unit TAB PO SCH ×3 (09:44→14:45)
[2020-03-12] MEDS ORDERED: Lactated Ringers 1000 ml BAG 1,000 ML IV SCH (10:00)
[2020-03-12] MEDS: Analgesic BALM 114 GM TOPICAL SCH ×3 (10:42→20:12)
[2020-03-12] MEDS ORDERED: Dexamethasone IV 4 MG/ML VIAL 1 ml VIAL IV SLOW PU ONE (10:46)
[2020-03-12] MEDS ORDERED: NS 0.9% 1000 ml BAG 1,000 ML IV SCH (11:00)
[2020-03-12] MEDS ORDERED: Iohexol 350 (CONTRAST) 500 ML MDV IV ONE (11:33)
[2020-03-12 16:54] LABS: Urine Chloride Concentration < 22 mmol/L; Urine Potassium Concentration 25.3 mmol/L; Urine Sodium Concentration < 18 mmol/L
[2020-03-12] MEDS: Dexamethasone IV 4 MG/ML VIAL 1 ml VIAL IV SLOW PU SCH (17:45)
[2020-03-13] MEDS: Dexamethasone IV 4 MG/ML VIAL 1 ml VIAL IV SLOW PU SCH ×4 (00:47→17:46)
[2020-03-13 04:47] LABS: BUN/Creatinine Ratio 24.1 (8-20); Calcium 9.5 mg/dL (8.6-10.3); EGFR African American 117.3 (>60); Potassium 4.7 mmol/L (3.5-5.0)
[2020-03-13] MEDS: Cholecalciferol (VIT D3) 1,000 unit TAB PO SCH (08:12)
[2020-03-13] MEDS: Vitamin THERAPEUTIC TAB PO SCH (08:13)
[2020-03-13] MEDS: Analgesic BALM 114 GM TOPICAL SCH ×3 (08:13→21:14)
[2020-03-13] MEDS: levETIRAcetam 500 MG IVPREMIX 500 MG/100 ML BAG IV SCH ×2 (08:13→21:17)
[2020-03-13] MEDS ORDERED: Senna TAB 8.6 mg TAB PO PRN (22:47)
[2020-03-13] MEDS ORDERED: Magnesium Hydroxide LIQ 30 ML UDC PO PRN (22:47)
[2020-03-14] MEDS: Dexamethasone IV 4 MG/ML VIAL 1 ml VIAL IV SLOW PU SCH (02:20)
[2020-03-14] MEDS: Cholecalciferol (VIT D3) 1,000 unit TAB PO SCH (09:16)
[2020-03-14] MEDS: Vitamin THERAPEUTIC TAB PO SCH (09:16)
[2020-03-14] MEDS: Analgesic BALM 114 GM TOPICAL SCH ×3 (09:17→20:13)
[2020-03-14 09:58] LABS: BUN/Creatinine Ratio 24.4 (8-20); Calcium 10.2 mg/dL (8.6-10.3); EGFR African American 119.1 (>60); EGFR Non-African American 98.4 (>60); Potassium 4.2 mmol/L (3.5-5.0)
[2020-03-15 07:16] LABS: ABS Lymphocytes 1.9 10^3/ul (1.0-4.8); ABS Monocytes 0.9 10^3/ul (0-0.8); ABS Neutrophils 6.5 10^3/ul (1.5-7.7); Eosinophil % 0.1 %; Hematocrit 41 % (42-52); Hemoglobin 14.1 g/dL (14.0-18.0); Lymphocyte % 20.2 %; Mean Corpuscular HGB Conc 34 g/dL (31-36); Mean Corpuscular Hemoglobin 34 pg (27-31); Mean Corpuscular Volume 100 fL (80-94); Mean Platelet Volume 7.6 fL (7.4-10.4); Platelet Count 235 10^3/uL (150-450); Red Blood Count 4.11 10^6 /uL (4.18-5.48); Red Cell Distribution Width 13 % (10-15); White Blood Count 9.4 10^3/uL (3.5-10.8)
[2020-03-15 07:42] LABS: BUN/Creatinine Ratio 24.4 (8-20); Calcium 10.1 mg/dL (8.6-10.3); EGFR African American 106.4 (>60); EGFR Non-African American 87.9 (>60); Magnesium 1.9 mg/dL (1.9-2.7)
[2020-03-15 08:46] LABS: Potassium 4.1 mmol/L (3.5-5.0)
[2020-03-15] MEDS: Analgesic BALM 114 GM TOPICAL SCH ×2 (08:50→13:35)
[2020-03-15] MEDS: Cholecalciferol (VIT D3) 1,000 unit TAB PO SCH (08:50)
[2020-03-15] MEDS: Vitamin THERAPEUTIC TAB PO SCH (08:52)
[2020-03-15 13:15] VITALS: BP 151/68
[2020-03-15 17:05] LABS: HDL Cholesterol 58.9 mg/dL
== END 2020-03-15 17:15 | disposition home or self-care (01) | DRG 85 ==
LOC: ED 11:17 → ICU 15:46 → MEDTELE 03-07 17:25 → ICU 03-11 22:05 → MEDTELE 03-13 09:28
PROVIDERS: ADMIT Internal Medicine; ATTEND Internal Medicine

== ENCOUNTER 2021-08-12 08:07 | Inpatient (IN) ==
[2021-08-12] MEDS ORDERED: Fluorescein Sodium TOPICAL TEST STRIP OPHTHALMIC ONE (08:37)
[2021-08-12] MEDS ORDERED: Tetracaine 0.5% OPTH.SOL 4 ML BTL ONE (08:37)
[2021-08-12] MEDS ORDERED: oxyCODONE/Acetamin 10/325(NF) TAB PO ONE (08:45)
[2021-08-12 08:57] LABS: ABS Basophils 0.1 10^3/ul (0-0.2); ABS Lymphocytes 0.9 10^3/ul (1.0-4.8); ABS Monocytes 1.3 10^3/ul (0-0.8); ABS Neutrophils 10.3 10^3/ul (1.5-7.7); Eosinophil % 0.2 %; Hematocrit 44 % (42-52); Lymphocyte % 7.4 %; Mean Corpuscular HGB Conc 34 g/dL (31-36); Mean Corpuscular Hemoglobin 32 pg (27-31); Mean Corpuscular Volume 93 fL (80-94); Mean Platelet Volume 8.1 fL (7.4-10.4); Platelet Count 184 10^3/uL (150-450); Red Cell Distribution Width 14 % (10-15); White Blood Count 12.7 10^3/uL (3.5-10.8)
[2021-08-12] MEDS ORDERED: oxyCODONE/Acetamin 5/325 mg TAB PO ONE (09:30)
[2021-08-12 09:46] LABS: Albumin/Globulin Ratio 1.5 (1-3); Calcium 9.6 mg/dL (8.6-10.3); Globulin 2.7 g/dL (2-4); Magnesium 1.5 mg/dL (1.9-2.7); Potassium 3.8 mmol/L (3.5-5.0); Total Protein 6.7 g/dL (6.4-8.9); eGFR CKD-EPI 58.7 (>60)
[2021-08-12] MEDS ORDERED: Magnesium Sulfate 2 gm BAG 2 GM/50 ML BAG IVPB ONE (10:38)
[2021-08-12] MEDS: cefTRIAXone 1 gm/50 mL D5W 1 GM/50 ML BAG IV SCH (17:37)
[2021-08-12] MEDS: DULoxetine DR 60 mg CAP PO SCH (17:58)
[2021-08-12] MEDS: DULoxetine DR 30 mg CAP PO SCH (17:58)
[2021-08-12] MEDS: Enoxaparin 40 MG/0.4 ML SYR SUBCUT SCH (17:59)
[2021-08-12 18:08] LABS: C Reactive Protein 194.8 mg/L (<8.01)
[2021-08-12 18:24] LABS: TSH Ultra Thyroid Stim Horm 11.61 mcIU/mL (0.34-5.60)
[2021-08-12] MEDS: Nystatin TOP POWDER 15 GM BTL TOPICAL SCH (22:24)
[2021-08-12] MEDS: oxyCODONE/Acetamin 5/325 mg TAB PO PRN (23:02)
[2021-08-13 06:45] LABS: ABS Lymphocytes 0.5 10^3/ul (1.0-4.8); ABS Monocytes 0.3 10^3/ul (0-0.8); ABS Neutrophils 6.5 10^3/ul (1.5-7.7); Eosinophil % 0.1 %; Hematocrit 41 % (42-52); Hemoglobin 13.6 g/dL (14.0-18.0); Lymphocyte % 6.8 %; Mean Corpuscular HGB Conc 34 g/dL (31-36); Mean Corpuscular Hemoglobin 32 pg (27-31); Mean Corpuscular Volume 94 fL (80-94); Mean Platelet Volume 8.6 fL (7.4-10.4); Nucleated Red Blood Cells % 0.1; Platelet Count 194 10^3/uL (150-450); Red Blood Count 4.32 10^6 /uL (4.18-5.48); Red Cell Distribution Width 14 % (10-15); White Blood Count 7.3 10^3/uL (3.5-10.8)
[2021-08-13 07:08] LABS: Calcium 9.1 mg/dL (8.6-10.3); Potassium 4.1 mmol/L (3.5-5.0); eGFR CKD-EPI 35.9 (>60)
[2021-08-13] MEDS ORDERED: Cyanocobalamin INJ 1,000 MCG/ML VIAL 1 ML VIAL IM SCH (09:00)
[2021-08-13] MEDS: DULoxetine DR 60 mg CAP PO SCH (10:06)
[2021-08-13] MEDS: DULoxetine DR 30 mg CAP PO SCH (10:06)
[2021-08-13] MEDS: Vitamin THERAPEUTIC TAB PO SCH (10:07)
[2021-08-13 10:43] LABS: Urine Appearance Cloudy; Urine Bilirubin Negative (Negative); Urine Blood 3+ (Negative); Urine Color Amber; Urine Glucose Negative (Negative); Urine Ketones Negative (Negative); Urine Nitrite Negative (Negative); Urine Protein 1+(30 mg/dL) (Negative); Urine Specific Gravity 1.018 (1.002-1.030); Urine Urobilinogen Negative (Negative)
[2021-08-13 10:51] LABS: Urine Bacteria Absent (Absent); Urine Granular Casts Present (Absent); Urine Red Blood Cell 3+(>10/hpf) (Absent); Urine White Blood Cell Absent (Absent)
[2021-08-13 10:56] LABS: Urine Creatinine Concentration 187.61 mg/dL
[2021-08-13 11:15] LABS: Urine Osmo 480 mOsm/kg (150-1150)
[2021-08-13] MEDS: oxyCODONE/Acetamin 5/325 mg TAB PO PRN ×2 (11:31→17:58)
[2021-08-13] MEDS: Nystatin TOP POWDER 15 GM BTL TOPICAL SCH ×2 (11:33→21:17)
[2021-08-13 13:00] LABS: Osmolality Serum 283 mOsm/kg (275-295)
[2021-08-13] MEDS: Amphetamine/Dextroam ER 10(NF) 10 mg CAP.ER PO SCH (14:08)
[2021-08-13] MEDS: NS 0.9% 1000 ml BAG 1,000 ML IV SCH (14:44)
[2021-08-13] MEDS ORDERED: Furosemide 20 mg/2 ml IV VIAL IV ONE (15:34)
[2021-08-13] MEDS: cefTRIAXone 1 gm/50 mL D5W 1 GM/50 ML BAG IV SCH (17:09)
[2021-08-13] MEDS: Enoxaparin 40 MG/0.4 ML SYR SUBCUT SCH (17:09)
[2021-08-14] MEDS: oxyCODONE/Acetamin 5/325 mg TAB PO PRN ×4 (00:22→20:05)
[2021-08-14] MEDS: NS 0.9% 1000 ml BAG 1,000 ML IV SCH (04:27)
[2021-08-14 05:35] LABS: ABS Lymphocytes 0.6 10^3/ul (1.0-4.8); ABS Monocytes 0.5 10^3/ul (0-0.8); ABS Neutrophils 7.7 10^3/ul (1.5-7.7); Hematocrit 37 % (42-52); Hemoglobin 12.6 g/dL (14.0-18.0); Lymphocyte % 7.3 %; Mean Corpuscular HGB Conc 34 g/dL (31-36); Mean Corpuscular Hemoglobin 31 pg (27-31); Mean Corpuscular Volume 92 fL (80-94); Mean Platelet Volume 8.3 fL (7.4-10.4); Platelet Count 219 10^3/uL (150-450); Red Cell Distribution Width 14 % (10-15); White Blood Count 8.8 10^3/uL (3.5-10.8)
[2021-08-14 06:18] LABS: Calcium 8.5 mg/dL (8.6-10.3); Magnesium 1.9 mg/dL (1.9-2.7); Potassium 4.5 mmol/L (3.5-5.0); eGFR CKD-EPI 31.9 (>60)
[2021-08-14] MEDS: Heparin 5000 UNITS/ML 1 mL VIAL SUBCUT SCH ×2 (09:11→20:02)
[2021-08-14] MEDS: Amphetamine/Dextroam ER 10(NF) 10 mg CAP.ER PO SCH (09:11)
[2021-08-14] MEDS: Vitamin THERAPEUTIC TAB PO SCH (09:12)
[2021-08-14] MEDS: DULoxetine DR 60 mg CAP PO SCH (09:13)
[2021-08-14] MEDS: DULoxetine DR 30 mg CAP PO SCH (09:13)
[2021-08-14] MEDS: Nystatin TOP POWDER 15 GM BTL TOPICAL SCH ×2 (09:15→20:07)
[2021-08-14 10:17] LABS: Activated Partial Thrombo Time 31.2 seconds (26.0-38.0); INR 1.18 (0.86-1.15)
[2021-08-14 10:21] LABS: eGFR CKD-EPI 35.7 (>60)
[2021-08-14] MEDS: cefTRIAXone 1 gm/50 mL D5W 1 GM/50 ML BAG IV SCH (17:42)
[2021-08-15] MEDS: oxyCODONE/Acetamin 5/325 mg TAB PO PRN ×2 (03:15→12:34)
[2021-08-15 09:20] LABS: Albumin 3.4 g/dL (3.2-5.2); Albumin/Globulin Ratio 1.5 (1-3); C Reactive Protein 38.2 mg/L (<8.01); Calcium 8.6 mg/dL (8.6-10.3); Globulin 2.3 g/dL (2-4); Potassium 4.3 mmol/L (3.5-5.0); Total Bilirubin 0.4 mg/dL (0.2-1.0); Total Protein 5.7 g/dL (6.4-8.9); eGFR CKD-EPI 49.1 (>60)
[2021-08-15] MEDS: Vitamin THERAPEUTIC TAB PO SCH (11:26)
[2021-08-15] MEDS: Amphetamine/Dextroam ER 10(NF) 10 mg CAP.ER PO SCH (11:26)
[2021-08-15] MEDS: DULoxetine DR 30 mg CAP PO SCH (11:26)
[2021-08-15] MEDS: DULoxetine DR 60 mg CAP PO SCH (11:26)
[2021-08-15] MEDS: Heparin 5000 UNITS/ML 1 mL VIAL SUBCUT SCH (11:27)
[2021-08-15] MEDS: Nystatin TOP POWDER 15 GM BTL TOPICAL SCH (11:31)
[2021-08-15] MEDS ORDERED: Magnesium Hydroxide LIQ 30 ML UDC PO PRN (13:35)
[2021-08-15] MEDS ORDERED: Senna TAB 8.6 mg TAB PO PRN (13:35)
[2021-08-15 15:16] VITALS: BP 145/71
== END 2021-08-15 17:00 | disposition home health service (06) | DRG 554 ==
LOC: ED 08:07 → SUATTDRO 16:45 → EDHOLD 16:45 → SSU 19:30
PROVIDERS: ADMIT Internal Medicine; ATTEND Family Medicine

== ENCOUNTER 2022-03-17 13:31 | Inpatient (IN) ==
[2022-03-17] MEDS ORDERED: Morphine 4 MG/ML VIAL (1 ml) IV ONE ×2 (13:44→14:52)
[2022-03-17 15:02] LABS: ABS Basophils 0.1 10^3/ul (0-0.2); ABS Lymphocytes 0.8 10^3/ul (1.0-4.8); ABS Monocytes 0.6 10^3/ul (0-0.8); ABS Neutrophils 6.4 10^3/ul (1.5-7.7); Eosinophil % 0.5 %; Hematocrit 37 % (42-52); Hemoglobin 12.3 g/dL (14.0-18.0); Lymphocyte % 10.6 %; Mean Corpuscular HGB Conc 33 g/dL (31-36); Mean Corpuscular Hemoglobin 34 pg (27-31); Mean Corpuscular Volume 101 fL (80-94); Mean Platelet Volume 7.4 fL (7.4-10.4); Nucleated Red Blood Cells % 0.1; Platelet Count 195 10^3/uL (150-450); Red Blood Count 3.66 10^6 /uL (4.18-5.48); Red Cell Distribution Width 15 % (10-15); White Blood Count 7.9 10^3/uL (3.5-10.8)
[2022-03-17 15:58] LABS: Albumin 3.6 g/dL (3.2-5.2); Albumin/Globulin Ratio 1.8 (1-3); Calcium 8.4 mg/dL (8.6-10.3); Creatinine, Serum 0.77 mg/dL (0.67-1.17); Total Bilirubin 0.5 mg/dL (0.2-1.0); Total Protein 5.6 g/dL (6.4-8.9); eGFR CKD-EPI 95.1 (>60)
[2022-03-17] MEDS ORDERED: Morphine 2 MG/ML SYRINGE IV ONE (17:07)
[2022-03-17] MEDS ORDERED: Fluticasone NASAL SPRAY 50MCG 16 gm SPRAY BTL BOTH NARES PRN (17:15)
[2022-03-17] MEDS: Morphine 2 MG/ML SYRINGE IV PRN (17:49)
[2022-03-17 18:10] LABS: TSH Ultra Thyroid Stim Horm 10.8 mcIU/mL (0.34-5.60)
[2022-03-17 19:45] LABS: Activated Partial Thrombo Time 29.7 seconds (26.0-38.0); INR 1.32 (0.88-1.18)
[2022-03-17] MEDS: Heparin 5000 UNITS/ML 1 mL VIAL SUBCUT SCH (21:28)
[2022-03-18 05:43] LABS: ABS Basophils 0.1 10^3/ul (0-0.2); ABS Lymphocytes 1.6 10^3/ul (1.0-4.8); ABS Monocytes 0.9 10^3/ul (0-0.8); ABS Neutrophils 6.8 10^3/ul (1.5-7.7); Eosinophil % 0.4 %; Hematocrit 30 % (42-52); Hemoglobin 10.2 g/dL (14.0-18.0); Lymphocyte % 17.3 %; Mean Corpuscular HGB Conc 34 g/dL (31-36); Mean Corpuscular Hemoglobin 34 pg (27-31); Mean Corpuscular Volume 102 fL (80-94); Mean Platelet Volume 7.4 fL (7.4-10.4); Platelet Count 210 10^3/uL (150-450); Red Blood Count 2.96 10^6 /uL (4.18-5.48); Red Cell Distribution Width 15 % (10-15); White Blood Count 9.6 10^3/uL (3.5-10.8)
[2022-03-18] MEDS: Heparin 5000 UNITS/ML 1 mL VIAL SUBCUT SCH ×2 (05:43→14:16)
[2022-03-18] MEDS: Morphine 2 MG/ML SYRINGE IV PRN ×2 (05:50→11:27)
[2022-03-18 06:29] LABS: Calcium 8.4 mg/dL (8.6-10.3); Creatinine, Serum 1.37 mg/dL (0.67-1.17); Potassium 4.5 mmol/L (3.5-5.0); eGFR CKD-EPI 54.8 (>60)
[2022-03-18] MEDS: DULoxetine DR 30 mg CAP PO SCH (08:30)
[2022-03-18] MEDS: DULoxetine DR 60 mg CAP PO SCH (08:30)
[2022-03-18] MEDS: CMCS: Fenofibrate 145 mg TAB (NF) PO SCH (08:31)
[2022-03-18 10:09] LABS: Folate 7.51 ng/mL (5.90-24.80)
[2022-03-18] MEDS ORDERED: Lactated Ringers 1000 ml BAG 1,000 ML IV ONE ×2 (15:19→18:25)
[2022-03-18] MEDS ORDERED: Magnesium Hydroxide LIQ 30 ML UDC PO PRN (15:57)
[2022-03-18] MEDS ORDERED: Senna TAB 8.6 mg TAB PO PRN (15:57)
[2022-03-18 16:22] LABS: Magnesium 1.4 mg/dL (1.9-2.7)
[2022-03-18] MEDS ORDERED: Magnesium Sulfate 2 gm BAG 2 GM/50 ML BAG IVPB ONE (16:30)
[2022-03-18 16:41] LABS: Vitamin D Total 25(OH) 7.3 ng/mL (20-50)
[2022-03-19 06:05] LABS: Hematocrit 26 % (42-52); Hemoglobin 8.6 g/dL (14.0-18.0); Mean Corpuscular HGB Conc 33 g/dL (31-36); Mean Corpuscular Hemoglobin 34 pg (27-31); Mean Corpuscular Volume 102 fL (80-94); Mean Platelet Volume 7.5 fL (7.4-10.4); Platelet Count 184 10^3/uL (150-450); Red Blood Count 2.55 10^6 /uL (4.18-5.48); Red Cell Distribution Width 15 % (10-15); White Blood Count 12.5 10^3/uL (3.5-10.8)
[2022-03-19 06:42] LABS: Calcium 8.3 mg/dL (8.6-10.3); Creatinine, Serum 2.28 mg/dL (0.67-1.17); Magnesium 1.8 mg/dL (1.9-2.7); Potassium 4.4 mmol/L (3.5-5.0); eGFR CKD-EPI 29.7 (>60)
[2022-03-19] MEDS: CMCS: Fenofibrate 145 mg TAB (NF) PO SCH (08:41)
[2022-03-19] MEDS: Amphetamine/Dextroam ER 10(NF) 10 mg CAP.ER PO SCH (08:44)
[2022-03-19] MEDS: DULoxetine DR 60 mg CAP PO SCH (08:44)
[2022-03-19] MEDS: DULoxetine DR 30 mg CAP PO SCH (08:44)
[2022-03-19] MEDS ORDERED: Lactated Ringers 1000 ml BAG 1,000 ML IV ONE (09:12)
[2022-03-19 09:50] LABS: Hematocrit 24 % (42-52); Hemoglobin 7.9 g/dL (14.0-18.0); Mean Corpuscular HGB Conc 33 g/dL (31-36); Mean Corpuscular Hemoglobin 33 pg (27-31); Mean Corpuscular Volume 102 fL (80-94); Mean Platelet Volume 7.3 fL (7.4-10.4); Platelet Count 165 10^3/uL (150-450); Red Blood Count 2.38 10^6 /uL (4.18-5.48); Red Cell Distribution Width 15 % (10-15); White Blood Count 11.4 10^3/uL (3.5-10.8)
[2022-03-19 10:52] LABS: Potassium 4.2 mmol/L (3.5-5.0)
[2022-03-19 10:53] LABS: Calcium 8.1 mg/dL (8.6-10.3)
[2022-03-19 10:54] LABS: Creatinine, Serum 2.05 mg/dL (0.67-1.17); eGFR CKD-EPI 33.8 (>60)
[2022-03-19] MEDS ORDERED: Magnesium Sulfate IV 1GM/100ML 1 GM/100 ML BAG IV ONE (11:26)
[2022-03-19] MEDS: D5W 1/2 NS 1000 ml BAG 1,000 ML IV SCH ×2 (11:31→19:30)
[2022-03-19] MEDS: Cholecalciferol (VIT D3) 1,000 unit TAB PO SCH (15:47)
[2022-03-19 18:27] LABS: Hematocrit 23 % (42-52); Hemoglobin 7.7 g/dL (14.0-18.0); Mean Corpuscular HGB Conc 33 g/dL (31-36); Mean Corpuscular Hemoglobin 34 pg (27-31); Mean Corpuscular Volume 102 fL (80-94); Mean Platelet Volume 7.4 fL (7.4-10.4); Platelet Count 178 10^3/uL (150-450); Red Blood Count 2.31 10^6 /uL (4.18-5.48); Red Cell Distribution Width 15 % (10-15); White Blood Count 11.9 10^3/uL (3.5-10.8)
[2022-03-20] MEDS: D5W 1/2 NS 1000 ml BAG 1,000 ML IV SCH (02:21)
[2022-03-20 05:39] LABS: Hematocrit 21 % (42-52); Mean Corpuscular HGB Conc 33 g/dL (31-36); Mean Corpuscular Hemoglobin 33 pg (27-31); Mean Corpuscular Volume 100 fL (80-94); Mean Platelet Volume 7.1 fL (7.4-10.4); Platelet Count 139 10^3/uL (150-450); Red Cell Distribution Width 15 % (10-15); White Blood Count 10.1 10^3/uL (3.5-10.8)
[2022-03-20 06:17] LABS: Calcium 7.8 mg/dL (8.6-10.3); Creatinine, Serum 1.87 mg/dL (0.67-1.17); Magnesium 1.8 mg/dL (1.9-2.7); eGFR CKD-EPI 37.7 (>60)
[2022-03-20] MEDS: Amphetamine/Dextroam ER 10(NF) 10 mg CAP.ER PO SCH (08:53)
[2022-03-20] MEDS: CMCS: Fenofibrate 145 mg TAB (NF) PO SCH (08:53)
[2022-03-20] MEDS: DULoxetine DR 30 mg CAP PO SCH (08:53)
[2022-03-20] MEDS: DULoxetine DR 60 mg CAP PO SCH (08:53)
[2022-03-20] MEDS: Cholecalciferol (VIT D3) 1,000 unit TAB PO SCH (08:53)
[2022-03-20] MEDS ORDERED: NS 0.9% 1000 ml BAG 1,000 ML IV SCH (13:15)
[2022-03-20 14:46] LABS: Hematocrit 24 % (42-52); Hemoglobin 7.9 g/dL (14.0-18.0)
[2022-03-20 15:15] LABS: Calcium 7.9 mg/dL (8.6-10.3); Potassium 4.3 mmol/L (3.5-5.0)
[2022-03-20 15:21] LABS: Creatinine, Serum 1.64 mg/dL (0.67-1.17); eGFR CKD-EPI 44.2 (>60)
[2022-03-20 23:31] LABS: Urine Appearance Cloudy; Urine Bilirubin Negative (Negative); Urine Blood 3+ (Negative); Urine Color Amber; Urine Glucose Negative (Negative); Urine Ketones Negative (Negative); Urine Nitrite Negative (Negative); Urine Protein 1+(30 mg/dL) (Negative); Urine Specific Gravity 1.015 (1.002-1.030); Urine Urobilinogen Negative (Negative)
[2022-03-20 23:46] LABS: Urine Osmo 479 mOsm/kg (150-1150)
[2022-03-20 23:50] LABS: Urine Bacteria 1+ (Absent); Urine Red Blood Cell 3+(>10/hpf) (Absent); Urine Squamous Epithelial Cell Present (Absent); Urine White Blood Cell 1+(6-10/hpf) (Absent)
[2022-03-21 05:42] LABS: ABS Eosinophils 0.1 10^3/ul (0-0.6); ABS Lymphocytes 0.7 10^3/ul (1.0-4.8); ABS Monocytes 0.6 10^3/ul (0-0.8); ABS Neutrophils 5.7 10^3/ul (1.5-7.7); Eosinophil % 1.2 %; Hematocrit 23 % (42-52); Hemoglobin 7.7 g/dL (14.0-18.0); Lymphocyte % 9.9 %; Mean Corpuscular HGB Conc 34 g/dL (31-36); Mean Corpuscular Hemoglobin 34 pg (27-31); Mean Corpuscular Volume 100 fL (80-94); Mean Platelet Volume 7.4 fL (7.4-10.4); Platelet Count 132 10^3/uL (150-450); Red Cell Distribution Width 16 % (10-15); White Blood Count 7.1 10^3/uL (3.5-10.8)
[2022-03-21 06:25] LABS: Anion Gap 5 mmol/L (2-11); Blood Urea Nitrogen 26 mg/dL (6-24); CO2 Carbon Dioxide 26 mmol/L (22-32); Chloride 98 mmol/L (101-111); Creatinine, Serum 1.42 mg/dL (0.67-1.17); Glucose 99 mg/dL (70-100); Potassium 3.9 mmol/L (3.5-5.0); Sodium 129 mmol/L (135-145); eGFR CKD-EPI 52.5 (>60)
[2022-03-21] MEDS: DULoxetine DR 30 mg CAP PO SCH (09:07)
[2022-03-21] MEDS: DULoxetine DR 60 mg CAP PO SCH (09:07)
[2022-03-21] MEDS: CMCS: Fenofibrate 145 mg TAB (NF) PO SCH (09:22)
[2022-03-21] MEDS: Amphetamine/Dextroam ER 10(NF) 10 mg CAP.ER PO SCH (09:22)
[2022-03-21] MEDS: Cholecalciferol (VIT D3) 1,000 unit TAB PO SCH (09:22)
[2022-03-21] MEDS ORDERED: Morphine 2 MG/ML SYRINGE IV PRN (10:22)
[2022-03-21] MEDS: Morphine 2 MG/ML SYRINGE IV PRN ×3 (10:34→22:08)
[2022-03-21] MEDS ORDERED: Phenylephrine IV 10 MG/ML 1 ml VIAL ONE (11:19)
[2022-03-21] MEDS ORDERED: Rocuronium 50 mg VIAL 10 mg/ml 5 ml VIAL (50 mg) ONE (11:21)
[2022-03-21] MEDS ORDERED: Lidocaine 2% PF 5 ML VIAL ONE (11:21)
[2022-03-21] MEDS ORDERED: Propofol 10 MG/ML 20 ML BTL ONE (11:21)
[2022-03-21] MEDS ORDERED: fentaNYL 100 mcg/2 ml 50 MCG/ML VIAL ONE ×2 (11:24→14:05)
[2022-03-21] MEDS ORDERED: ceFAZolin 2 GM PREMIX 2 GM/50 ML BAG ONE (11:54)
[2022-03-21] MEDS ORDERED: Bupivacaine 0.25% SDV PF 10 ML VIAL INJ ONE (13:08)
[2022-03-21 13:34] LABS: Total Iron Binding Capacity 234 mcg/dL (250-450); Transferrin 167 mg/dL (203-362)
[2022-03-21 13:35] LABS: % Iron Saturation 9 % (15-55); Iron < 20 ug/dL (50-212); Unsaturated Iron Binding 214 ug/dL
[2022-03-21] MEDS ORDERED: Ondansetron 4 mg VIAL 2 MG/ML 2 ml VIAL ONE (13:53)
[2022-03-21 13:55] LABS: Ferritin 156.8 ng/mL (24-336)
[2022-03-21] MEDS ORDERED: Sugammadex 500 MG/5 ML 5 ml VIAL IV PUSH ONE (13:56)
[2022-03-21] MEDS ORDERED: fentaNYL 100 mcg/2 ml 50 MCG/ML VIAL IV PRN (14:49)
[2022-03-21] MEDS ORDERED: Naloxone 0.4 mg VIAL 0.4 mg/ml 1 ml VIAL IV PRN (14:49)
[2022-03-21] MEDS ORDERED: Prochlorperazine 5 mg/ml 2 ml VIAL (10 mg) IV PRN (14:49)
[2022-03-21] MEDS ORDERED: HYDROcodone/ACETAMIN 5/325 mg TAB PO PRN (14:49)
[2022-03-21] MEDS ORDERED: oxyCODONE/Acetamin 5/325 mg TAB PO PRN (14:49)
[2022-03-21 16:13] LABS: Hematocrit 26 % (42-52); Hemoglobin 8.7 g/dL (14.0-18.0)
[2022-03-21] MEDS: NS 0.9% 1000 ml BAG 1,000 ML IV SCH (16:57)
[2022-03-21] MEDS: ceFAZolin 1 GM in Dextrose 1 GM/50 ML BAG IVPB SCH (20:32)
[2022-03-22] MEDS: NS 0.9% 1000 ml BAG 1,000 ML IV SCH (02:57)
[2022-03-22] MEDS: ceFAZolin 1 GM in Dextrose 1 GM/50 ML BAG IVPB SCH ×2 (03:43→12:15)
[2022-03-22 06:41] LABS: ABS Eosinophils 0.1 10^3/ul (0-0.6); ABS Lymphocytes 0.5 10^3/ul (1.0-4.8); ABS Monocytes 0.7 10^3/ul (0-0.8); ABS Neutrophils 4.4 10^3/ul (1.5-7.7); Eosinophil % 1.8 %; Hematocrit 21 % (42-52); Hemoglobin 7.3 g/dL (14.0-18.0); Lymphocyte % 8.7 %; Mean Corpuscular HGB Conc 35 g/dL (31-36); Mean Corpuscular Hemoglobin 34 pg (27-31); Mean Corpuscular Volume 97 fL (80-94); Mean Platelet Volume 7.1 fL (7.4-10.4); Nucleated Red Blood Cells % 0.1; Platelet Count 123 10^3/uL (150-450); Red Blood Count 2.17 10^6 /uL (4.18-5.48); Red Cell Distribution Width 17 % (10-15); White Blood Count 5.7 10^3/uL (3.5-10.8)
[2022-03-22 07:14] LABS: Calcium 7.7 mg/dL (8.6-10.3); Creatinine, Serum 1.2 mg/dL (0.67-1.17); Potassium 3.9 mmol/L (3.5-5.0); eGFR CKD-EPI 64.3 (>60)
[2022-03-22] MEDS ORDERED: Ferric Gluconate IV 250 MG in NS 0.9% 250 ml 200 ML IVPB ONE (08:26)
[2022-03-22] MEDS: DULoxetine DR 60 mg CAP PO SCH (08:28)
[2022-03-22] MEDS: DULoxetine DR 30 mg CAP PO SCH (08:29)
[2022-03-22] MEDS: Cholecalciferol (VIT D3) 1,000 unit TAB PO SCH (08:29)
[2022-03-22] MEDS: Amphetamine/Dextroam ER 10(NF) 10 mg CAP.ER PO SCH (08:29)
[2022-03-22] MEDS ORDERED: Senna TAB 8.6 mg TAB PO PRN (08:32)
[2022-03-22] MEDS ORDERED: Polyethylene Glycol 3350 17 GM PACKET PO PRN (08:32)
[2022-03-22] MEDS ORDERED: Magnesium Hydroxide LIQ 30 ML UDC PO PRN (08:32)
[2022-03-22] MEDS: CMCS: Fenofibrate 145 mg TAB (NF) PO SCH (08:34)
[2022-03-22] MEDS: Magnesium Hydroxide LIQ 30 ML UDC PO SCH ×2 (09:20→22:08)
[2022-03-22] MEDS: Enoxaparin 40 MG/0.4 ML SYR SUBCUT SCH (14:12)
[2022-03-22] MEDS: Morphine 2 MG/ML SYRINGE IV PRN (20:53)
[2022-03-23 05:48] LABS: ABS Eosinophils 0.1 10^3/ul (0-0.6); ABS Lymphocytes 0.4 10^3/ul (1.0-4.8); ABS Monocytes 0.5 10^3/ul (0-0.8); ABS Neutrophils 3.8 10^3/ul (1.5-7.7); Hematocrit 21 % (42-52); Hemoglobin 7.2 g/dL (14.0-18.0); Lymphocyte % 8.8 %; Mean Corpuscular HGB Conc 34 g/dL (31-36); Mean Corpuscular Hemoglobin 33 pg (27-31); Mean Corpuscular Volume 98 fL (80-94); Mean Platelet Volume 6.9 fL (7.4-10.4); Platelet Count 127 10^3/uL (150-450); Red Blood Count 2.19 10^6 /uL (4.18-5.48); Red Cell Distribution Width 16 % (10-15); White Blood Count 4.9 10^3/uL (3.5-10.8)
[2022-03-23 06:14] LABS: Calcium 7.9 mg/dL (8.6-10.3); Creatinine, Serum 0.99 mg/dL (0.67-1.17); Potassium 3.8 mmol/L (3.5-5.0); eGFR CKD-EPI 80.9 (>60)
[2022-03-23] MEDS: DULoxetine DR 60 mg CAP PO SCH (10:51)
[2022-03-23] MEDS: Cholecalciferol (VIT D3) 1,000 unit TAB PO SCH (10:51)
[2022-03-23] MEDS: Amphetamine/Dextroam ER 10(NF) 10 mg CAP.ER PO SCH (10:51)
[2022-03-23] MEDS: DULoxetine DR 30 mg CAP PO SCH (10:51)
[2022-03-23] MEDS: CMCS: Fenofibrate 145 mg TAB (NF) PO SCH (10:52)
[2022-03-23] MEDS: Magnesium Hydroxide LIQ 30 ML UDC PO SCH ×2 (10:53→21:36)
[2022-03-23] MEDS ORDERED: Ferric Gluconate IV 250 MG in NS 0.9% 250 ml 200 ML IVPB ONE (14:05)
[2022-03-23] MEDS: Enoxaparin 40 MG/0.4 ML SYR SUBCUT SCH (14:21)
[2022-03-24 08:09] LABS: Calcium 8.3 mg/dL (8.6-10.3); Creatinine, Serum 0.77 mg/dL (0.67-1.17); Potassium 3.9 mmol/L (3.5-5.0); eGFR CKD-EPI 95.1 (>60)
[2022-03-24] MEDS: DULoxetine DR 60 mg CAP PO SCH (09:30)
[2022-03-24] MEDS: Amphetamine/Dextroam ER 10(NF) 10 mg CAP.ER PO SCH (09:30)
[2022-03-24] MEDS: DULoxetine DR 30 mg CAP PO SCH (09:31)
[2022-03-24] MEDS: Cholecalciferol (VIT D3) 1,000 unit TAB PO SCH (09:31)
[2022-03-24] MEDS ORDERED: Iron Sucrose 200 MG in NS 0.9% 100 ml BAG 100 ML IVPB ONE (10:00)
[2022-03-24] MEDS: Magnesium Hydroxide LIQ 30 ML UDC PO SCH ×2 (10:42→21:08)
[2022-03-24] MEDS: CMCS: Fenofibrate 145 mg TAB (NF) PO SCH (10:53)
[2022-03-24] MEDS ORDERED: Lactated Ringers 1000 ml BAG 500 ML IV ONE (13:40)
[2022-03-24] MEDS ORDERED: Lidocaine 4% GEL 10 GM TUBE TOPICAL PRN (20:05)
[2022-03-25 09:10] LABS: ABS Basophils 0.1 10^3/ul (0-0.2); ABS Eosinophils 0.1 10^3/ul (0-0.6); ABS Lymphocytes 0.8 10^3/ul (1.0-4.8); ABS Monocytes 0.6 10^3/ul (0-0.8); ABS Neutrophils 4.2 10^3/ul (1.5-7.7); Eosinophil % 1.7 %; Hematocrit 22 % (42-52); Hemoglobin 7.5 g/dL (14.0-18.0); Lymphocyte % 13.3 %; Mean Corpuscular HGB Conc 34 g/dL (31-36); Mean Corpuscular Hemoglobin 33 pg (27-31); Mean Corpuscular Volume 97 fL (80-94); Mean Platelet Volume 6.7 fL (7.4-10.4); Platelet Count 207 10^3/uL (150-450); Red Cell Distribution Width 16 % (10-15); White Blood Count 5.7 10^3/uL (3.5-10.8)
[2022-03-25] MEDS: Cholecalciferol (VIT D3) 400 units TAB PO SCH (09:41)
[2022-03-25] MEDS: Calcium (OSCAL) 500 mg TAB PO SCH (09:42)
[2022-03-25] MEDS: DULoxetine DR 30 mg CAP PO SCH (09:42)
[2022-03-25] MEDS: DULoxetine DR 60 mg CAP PO SCH (09:42)
[2022-03-25] MEDS: CMCS: Fenofibrate 145 mg TAB (NF) PO SCH (09:43)
[2022-03-25 09:45] LABS: Calcium 8.1 mg/dL (8.6-10.3); Creatinine, Serum 0.79 mg/dL (0.67-1.17); Potassium 3.8 mmol/L (3.5-5.0); eGFR CKD-EPI 94.4 (>60)
[2022-03-25] MEDS: Magnesium Hydroxide LIQ 30 ML UDC PO SCH ×2 (09:50→19:37)
[2022-03-26] MEDS ORDERED: Potassium Chlor 20 meq TAB.ER PO ONE (08:31)
[2022-03-26] MEDS: Cholecalciferol (VIT D3) 400 units TAB PO SCH (09:54)
[2022-03-26] MEDS: Calcium (OSCAL) 500 mg TAB PO SCH (09:54)
[2022-03-26] MEDS: CMCS: Fenofibrate 145 mg TAB (NF) PO SCH (09:55)
[2022-03-26] MEDS: DULoxetine DR 30 mg CAP PO SCH (09:55)
[2022-03-26] MEDS: DULoxetine DR 60 mg CAP PO SCH (09:55)
[2022-03-26] MEDS: Magnesium Hydroxide LIQ 30 ML UDC PO SCH ×2 (11:37→20:02)
[2022-03-26 12:50] LABS: Rapid COVID-19 Molecular Undetected (Undetected)
[2022-03-27] MEDS: Magnesium Hydroxide LIQ 30 ML UDC PO SCH (07:25)
[2022-03-27] MEDS: DULoxetine DR 60 mg CAP PO SCH (08:30)
[2022-03-27] MEDS: Cholecalciferol (VIT D3) 400 units TAB PO SCH (08:30)
[2022-03-27] MEDS: Calcium (OSCAL) 500 mg TAB PO SCH (08:30)
[2022-03-27] MEDS: CMCS: Fenofibrate 145 mg TAB (NF) PO SCH (08:31)
[2022-03-27] MEDS: DULoxetine DR 30 mg CAP PO SCH (08:31)
[2022-03-27 16:22] VITALS: BP 157/73
== END 2022-03-27 16:15 | DRG 480 ==
LOC: ED 13:31 → SUATTDRO 16:24 → EDHOLD 16:24 → SSU 19:01
PROVIDERS: ADMIT Internal Medicine; ATTEND Internal Medicine

== ENCOUNTER 2023-04-17 18:09 | Inpatient (IN) ==
[2023-04-17 20:05] LABS: ABS Basophils 0.1 10^3/uL (0.0-0.1); ABS Eosinophils 0.1 10^3/uL (0.0-0.5); ABS Lymphocytes 0.9 10^3/uL (1.0-4.8); ABS Monocytes 0.8 10^3/uL (0.0-1.1); ABS Neutrophils 6.9 10^3/uL (1.5-7.6); Eosinophil % 1.5 %; Hematocrit 37.3 % (38-53); Lymphocyte % 10.1 %; Mean Corpuscular Hemoglobin 30.9 pg (27-33); Mean Corpuscular Hgb Conc 34.9 g/dL (31-36); Mean Corpuscular Volume 88.4 fL (80-97); Mean Platelet Volume 7.3 fL (7.5-11.2); Platelet Count 327 10^3/uL (150-450); Red Blood Count 4.21 10^6/uL (4.06-5.63); Red Cell Distribution Width 14.6 % (12-17); White Blood Count 8.9 10^3/uL (3.6-10.2)
[2023-04-17 21:09] LABS: High Sensitivity Troponin 1 Hr 9 pg/mL (<20)
[2023-04-17 21:22] LABS: Albumin 3.4 g/dL (3.2-5.2); Albumin/Globulin Ratio 1.2 (1-3); Calcium 9.1 mg/dL (8.6-10.3); Creatinine, Serum 1.78 mg/dL (0.67-1.17); Globulin 2.8 g/dL (2-4); Magnesium 1.3 mg/dL (1.9-2.7); Potassium 4.1 mmol/L (3.5-5.0); Total Bilirubin 1.1 mg/dL (0.2-1.0); Total Protein 6.2 g/dL (6.4-8.9); eGFR CKD-EPI 39.8 (>60)
[2023-04-17 21:26] LABS: Creatine Kinase 104 U/L (10-223)
[2023-04-17 21:33] LABS: TSH Ultra Thyroid Stim Horm 8.78 mcIU/mL (0.34-5.60)
[2023-04-17] MEDS: Lactated Ringers 1000 ml BAG 1,000 ML IV ONE (21:41)
[2023-04-17] MEDS: Magnesium Sulfate 2 gm BAG 2 GM/50 ML BAG IVPB ONE (21:46)
[2023-04-17] MEDS: D5W 1/2 NS 1000 ml BAG 1,000 ML IV SCH (23:40)
[2023-04-18 00:54] LABS: Urine Appearance Clear; Urine Bilirubin 1+ (Negative); Urine Blood 3+ (Negative); Urine Color Yellow; Urine Glucose Negative (Negative); Urine Ketones 1+ (Negative); Urine Nitrite Negative (Negative); Urine Protein Trace (Negative); Urine Specific Gravity 1.019 (1.002-1.030); Urine Urobilinogen 1+ (Negative); Urine pH 5.5 (5.0-8.0)
[2023-04-18 01:00] LABS: Urine Bacteria Absent /HPF (Absent); Urine Red Blood Cell 3+(>10/hpf) /HPF (0-Trace); Urine White Blood Cell Absent /HPF (0-Trace)
[2023-04-18 02:11] LABS: Urine Potassium Concentration 40.3 mmol/L
[2023-04-18 02:23] LABS: Calcium 8.8 mg/dL (8.6-10.3); Creatinine, Serum 1.71 mg/dL (0.67-1.17); Potassium 3.7 mmol/L (3.5-5.0); eGFR CKD-EPI 41.7 (>60)
[2023-04-18 02:34] LABS: Urine Osmo 474 mOsm/kg (150-1150)
[2023-04-18] MEDS ORDERED: Fluticasone NASAL SPRAY 50MCG 16 gm SPRAY BTL BOTH NARES PRN (02:45)
[2023-04-18] MEDS ORDERED: Senna TAB 8.6 mg TAB PO PRN (02:45)
[2023-04-18] MEDS ORDERED: Polyethylene Glycol 3350 17 GM PACKET PO PRN (02:45)
[2023-04-18] MEDS: NS 0.9% 1000 ml BAG 1,000 ML IV SCH ×2 (03:25→19:20)
[2023-04-18 06:21] LABS: ABS Basophils 0.1 10^3/uL (0.0-0.1); ABS Eosinophils 0.1 10^3/uL (0.0-0.5); ABS Lymphocytes 0.5 10^3/uL (1.0-4.8); ABS Monocytes 0.5 10^3/uL (0.0-1.1); ABS Neutrophils 6.2 10^3/uL (1.5-7.6); ABS Nucleated RBC 0.01 10^3/ul; Eosinophil % 1.3 %; Hematocrit 33.1 % (38-53); Hemoglobin 11.4 g/dL (13.2-16.3); Lymphocyte % 6.4 %; Mean Corpuscular Hemoglobin 30.4 pg (27-33); Mean Corpuscular Hgb Conc 34.5 g/dL (31-36); Mean Platelet Volume 7.3 fL (7.5-11.2); Nucleated Red Blood Cells % 0.1 %/100WBC (0.0-0.8); Platelet Count 292 10^3/uL (150-450); Red Blood Count 3.76 10^6/uL (4.06-5.63); Red Cell Distribution Width 14.4 % (12-17); White Blood Count 7.4 10^3/uL (3.6-10.2)
[2023-04-18 08:01] LABS: ALT 4 U/L (7-52); AST 15 U/L (13-39); Albumin 3.1 g/dL (3.2-5.2); Albumin/Globulin Ratio 1.2 (1-3); Alkaline Phosphatase 97 U/L (35-149); Anion Gap 14 mmol/L (2-16); Blood Urea Nitrogen 29 mg/dL (6-24); CO2 Carbon Dioxide 21 mmol/L (22-32); Calcium 8.6 mg/dL (8.6-10.3); Chloride 93 mmol/L (101-111); Creatinine, Serum 1.57 mg/dL (0.67-1.17); Globulin 2.5 g/dL (2-4); Glucose 71 mg/dL (70-100); Magnesium 1.6 mg/dL (1.9-2.7); Phosphorus 3.1 mg/dL (2.5-5.0); Potassium 3.8 mmol/L (3.5-5.0); Sodium 128 mmol/L (135-145); Total Bilirubin 0.9 mg/dL (0.2-1.0); Total Protein 5.6 g/dL (6.4-8.9); eGFR CKD-EPI 46.3 (>60)
[2023-04-18 09:16] LABS: Folate 4.87 ng/mL (5.90-24.80)
[2023-04-18 09:17] LABS: Vitamin B12 > 1450 pg/mL (180-914)
[2023-04-18] MEDS: Potassium Chloride LIQUID 20 MEQ/15 ML LIQUID PO ONE (09:29)
[2023-04-18] MEDS: DULoxetine DR 60 mg CAP PO SCH (09:32)
[2023-04-18 09:41] LABS: Osmolality Serum 274 mOsm/kg (275-295)
[2023-04-18 16:52] LABS: Calcium 8.7 mg/dL (8.6-10.3); Creatinine, Serum 1.35 mg/dL (0.67-1.17); Potassium 4.5 mmol/L (3.5-5.0); eGFR CKD-EPI 55.4 (>60)
[2023-04-19 06:20] LABS: ABS Basophils 0.1 10^3/uL (0.0-0.1); ABS Eosinophils 0.1 10^3/uL (0.0-0.5); ABS Lymphocytes 0.9 10^3/uL (1.0-4.8); ABS Monocytes 0.5 10^3/uL (0.0-1.1); ABS Neutrophils 4.4 10^3/uL (1.5-7.6); ABS Nucleated RBC 0.01 10^3/ul; Eosinophil % 1.5 %; Hematocrit 30.6 % (38-53); Hemoglobin 10.8 g/dL (13.2-16.3); Lymphocyte % 15.5 %; Mean Corpuscular Hgb Conc 35.1 g/dL (31-36); Mean Corpuscular Volume 88.2 fL (80-97); Mean Platelet Volume 7.5 fL (7.5-11.2); Nucleated Red Blood Cells % 0.1 %/100WBC (0.0-0.8); Platelet Count 294 10^3/uL (150-450); Red Blood Count 3.47 10^6/uL (4.06-5.63); Red Cell Distribution Width 14.4 % (12-17)
[2023-04-19 06:37] LABS: Calcium 8.4 mg/dL (8.6-10.3); Creatinine, Serum 1.12 mg/dL (0.67-1.17); Magnesium 1.5 mg/dL (1.9-2.7); Potassium 3.8 mmol/L (3.5-5.0); eGFR CKD-EPI 69.4 (>60)
[2023-04-20] MEDS: Calcium Carb (TUMS) 500 mg CHEW TAB PO PRN (04:16)
[2023-04-20 06:50] LABS: ABS Basophils 0.1 10^3/uL (0.0-0.1); ABS Eosinophils 0.1 10^3/uL (0.0-0.5); ABS Lymphocytes 0.8 10^3/uL (1.0-4.8); ABS Monocytes 0.5 10^3/uL (0.0-1.1); ABS Neutrophils 4.3 10^3/uL (1.5-7.6); Eosinophil % 2.2 %; Hemoglobin 11.2 g/dL (13.2-16.3); Lymphocyte % 13.8 %; Mean Corpuscular Hemoglobin 30.8 pg (27-33); Mean Corpuscular Volume 87.8 fL (80-97); Mean Platelet Volume 6.9 fL (7.5-11.2); Platelet Count 323 10^3/uL (150-450); Red Blood Count 3.64 10^6/uL (4.06-5.63); Red Cell Distribution Width 14.2 % (12-17); White Blood Count 5.8 10^3/uL (3.6-10.2)
[2023-04-20 07:09] LABS: Calcium 8.5 mg/dL (8.6-10.3); Creatinine, Serum 0.99 mg/dL (0.67-1.17); Magnesium 1.4 mg/dL (1.9-2.7); Potassium 3.5 mmol/L (3.5-5.0); eGFR CKD-EPI 80.4 (>60)
[2023-04-20] MEDS: Magnesium Sulfate 2 gm BAG 2 GM/50 ML BAG IVPB ONE (09:48)
[2023-04-20] MEDS: Potassium Chloride LIQUID 20 MEQ/15 ML LIQUID PO ONE (09:49)
[2023-04-21 05:05] LABS: ABS Basophils 0.1 10^3/uL (0.0-0.1); ABS Eosinophils 0.1 10^3/uL (0.0-0.5); ABS Monocytes 0.5 10^3/uL (0.0-1.1); ABS Neutrophils 3.7 10^3/uL (1.5-7.6); Eosinophil % 2.3 %; Hematocrit 34.3 % (38-53); Hemoglobin 11.9 g/dL (13.2-16.3); Lymphocyte % 18.1 %; Mean Corpuscular Hemoglobin 30.6 pg (27-33); Mean Corpuscular Hgb Conc 34.6 g/dL (31-36); Mean Corpuscular Volume 88.3 fL (80-97); Mean Platelet Volume 7.1 fL (7.5-11.2); Nucleated Red Blood Cells % 0.1 %/100WBC (0.0-0.8); Platelet Count 315 10^3/uL (150-450); Red Blood Count 3.88 10^6/uL (4.06-5.63); Red Cell Distribution Width 14.4 % (12-17); White Blood Count 5.3 10^3/uL (3.6-10.2)
[2023-04-21 05:23] LABS: Calcium 8.6 mg/dL (8.6-10.3); Creatinine, Serum 0.89 mg/dL (0.67-1.17); Magnesium 1.7 mg/dL (1.9-2.7); Potassium 3.8 mmol/L (3.5-5.0); eGFR CKD-EPI 90.5 (>60)
[2023-04-21] MEDS: Magnesium Sulfate 2 gm BAG 2 GM/50 ML BAG IVPB ONE (10:52)
[2023-04-21] MEDS: Calcium Carb (TUMS) 500 mg CHEW TAB PO SCH (13:03)
[2023-04-22] MEDS: Polyethylene Glycol 3350 17 GM PACKET PO SCH (09:49)
[2023-04-22] MEDS: Senna TAB 8.6 mg TAB PO SCH (20:49)
[2023-04-24 06:12] LABS: ABS Eosinophils 0.1 10^3/uL (0.0-0.5); ABS Lymphocytes 1.1 10^3/uL (1.0-4.8); ABS Monocytes 0.6 10^3/uL (0.0-1.1); ABS Neutrophils 4.1 10^3/uL (1.5-7.6); ABS Nucleated RBC 0.01 10^3/ul; Eosinophil % 1.9 %; Hematocrit 34.1 % (38-53); Hemoglobin 11.7 g/dL (13.2-16.3); Lymphocyte % 19.3 %; Mean Corpuscular Hemoglobin 30.6 pg (27-33); Mean Corpuscular Hgb Conc 34.4 g/dL (31-36); Mean Corpuscular Volume 88.9 fL (80-97); Nucleated Red Blood Cells % 0.1 %/100WBC (0.0-0.8); Platelet Count 361 10^3/uL (150-450); Red Blood Count 3.84 10^6/uL (4.06-5.63); Red Cell Distribution Width 14.2 % (12-17); White Blood Count 5.9 10^3/uL (3.6-10.2)
[2023-04-25 05:44] VITALS: BP 116/78
[2023-04-25 10:28] LABS: Rapid COVID-19 Molecular Undetected (Undetected)
== END 2023-04-25 11:10 | DRG 641 ==
LOC: EDHOLD 18:09 → ED 18:09 → SUATTDRO 23:38 → SSU 04-18 12:34
PROVIDERS: ADMIT Internal Medicine; ATTEND Internal Medicine